=== PATIENT | female | born 1950 | race Caucasian/White ===

== ENCOUNTER 2017-02-14 13:47 | Inpatient (IN) | payer MEDICARE, MEDICAID ==
[~2017-02-14] VITALS: Ht 157.5 cm; Wt 137.0 kg
[~2017-02-14 13:47] MED LIST: DOXY100C2 PO; FURO-149 PO; GABA800T2 PO; HYDR-3965 PO; OMEP40CA37 PO; SPIR50TA3 PO; SYN0.088T PO
[2017-02-14 15:57] LABS: BASOPHILS % (AUTO) 0.3 % (0-1); EOSINOPHILS # (AUTO) 0.3 X10'3 (0-0.9); EOSINOPHILS % (AUTO) 2.4 % (0-6); HEMATOCRIT 40.5 % (35.0-45.0); HEMOGLOBIN 13.3 g/dl (12.0-16.0); LYMPHOCYTES # (AUTO) 1.1 X10'3 (1.1-4.8); LYMPHOCYTES % (AUTO) 10.3 % (21-51); MEAN CORPUSCULAR HEMOGLOBIN 31.7 PG (27.0-31.0); MEAN CORPUSCULAR HGB CONC 32.8 % (33.0-36.5); MEAN CORPUSCULAR VOLUME 96.5 FL (78-98); MEAN PLATELET VOLUME 7.7 FL (7.4-10.4); MONOCYTES % (AUTO) 9.8 % (2-12); NEUTROPHILS % (AUTO) 77.2 % (42-75); PLATELET COUNT 363 X10'3 (140-440); RED CELL DISTRIBUTION WIDTH 15.4 % (11.5-14.5); WHITE BLOOD COUNT 10.3 X10'3 (4.5-11.0)
[2017-02-14 16:01] LABS: ALANINE AMINOTRANSFERASE 26 U/L (12-78); ALBUMIN 2.2 G/DL (3.4-5.0); ALBUMIN/GLOBULIN RATIO 0.4 (1.1-1.5); ALKALINE PHOSPHATASE 88 IU/L (46-116); ANION GAP 5 (8-16); ASPARTATE AMINO TRANSFERASE 17 U/L (10-37); BILIRUBIN,TOTAL 0.3 MG/DL (0.1-1.0); BLOOD UREA NITROGEN 8 MG/DL (7-18); BUN/CREATININE RATIO 7.4 (6.6-38.0); CALCIUM 9.4 MG/DL (8.5-10.1); CHLORIDE 97 MMOL/L (99-107); CREATININE 1.08 MG/DL (0.40-0.90); GLUCOSE 112 MG/DL (70-104); POTASSIUM 3.8 MMOL/L (3.5-5.1); SODIUM 135 MMOL/L (135-145); TOTAL CARBON DIOXIDE 33.2 MMOL/L (24-32); TOTAL PROTEIN 7.8 G/DL (6.4-8.2); eGFR 51 ML/MIN
[2017-02-14 16:52] LABS: PROTHROMBIN TIME 10.8 SECONDS (9.0-12.0)
[2017-02-14] MEDS ORDERED: vancomycin/NS 1 GM ADD-VANTAGE 250 ML IV ONE (17:25)
[2017-02-14] MEDS ORDERED: levoFLOXACIN-Levaquin 750MG/D5 150 ML IV ONE (17:25)
[2017-02-14] MEDS ORDERED: bisacodyl 10mg suppository rectal RC PRN (17:40)
[2017-02-14] MEDS ORDERED: HYDROmorphone 1 mg/ml syringe IV PRN ×2 (17:40)
[2017-02-14] MEDS ORDERED: HYDROcodone/acetaminophen 5mg/325mg tablet PO PRN (17:40)
[2017-02-14] MEDS ORDERED: acetaminophen 650mg rectal suppository RC PRN (17:40)
[2017-02-14] MEDS ORDERED: acetaminophen 325mg tablet PO PRN (17:40)
[2017-02-14] MEDS ORDERED: morphine sulfate 8 MG/ML SYRINGE IV PRN (17:40)
[2017-02-14] MEDS ORDERED: mag hydrox/Alum hydrox/simeth 30ml oral suspension PO PRN (17:40)
[2017-02-14] MEDS ORDERED: magnesium hydroxide 30ml (MOM) UD suspension PO PRN (17:40)
[2017-02-14] MEDS ORDERED: ondansetron/PF 4mg/2ml inj IV PRN (17:40)
[2017-02-14] MEDS ORDERED: diphenhydrAMINE 50 mg/ml inj IV PRN (17:40)
[2017-02-14] MEDS ORDERED: metoclopramide 5 mg/ml inj IV PRN (17:40)
[2017-02-14] MEDS: normal saline 1000ml 1,000 ML IV SCH (18:01)
[2017-02-14 18:12] LABS: PARTIAL THROMBOPLASTIN TIME 32 SECONDS (22-32)
[2017-02-14 18:15] LABS: MAGNESIUM 1.7 MG/DL (1.5-2.4)
[2017-02-14] MEDS ORDERED: vancomycin/NS 1 GM ADD-VANTAGE 250 ML IV SCH (20:00)
[2017-02-14] MEDS ORDERED: HYDROcodone/acetaminophen 5mg/325mg tablet PO SCH (21:00)
[2017-02-14 22:00] VITALS: BP 118/56
[2017-02-15] VITALS: BP 108/52
[2017-02-15] MEDS: HYDROcodone/acetaminophen 10/325mg tab PO PRN ×3 (03:11→13:24)
[2017-02-15] MEDS: normal saline 1000ml 1,000 ML IV SCH ×3 (03:36→16:35)
[2017-02-15 06:26] LABS: BASOPHILS % (AUTO) 0.1 % (0-1); EOSINOPHILS # (AUTO) 0.2 X10'3 (0-0.9); EOSINOPHILS % (AUTO) 2.1 % (0-6); HEMATOCRIT 35.3 % (35.0-45.0); HEMOGLOBIN 11.9 g/dl (12.0-16.0); LYMPHOCYTES # (AUTO) 0.6 X10'3 (1.1-4.8); LYMPHOCYTES % (AUTO) 7.5 % (21-51); MEAN CORPUSCULAR HEMOGLOBIN 31.9 PG (27.0-31.0); MEAN CORPUSCULAR HGB CONC 33.6 % (33.0-36.5); MEAN CORPUSCULAR VOLUME 95.2 FL (78-98); MEAN PLATELET VOLUME 7.9 FL (7.4-10.4); MONOCYTES # (AUTO) 0.4 X10'3 (0-0.9); MONOCYTES % (AUTO) 4.2 % (2-12); NEUTROPHILS # (AUTO) 7.1 X10'3 (1.8-7.7); NEUTROPHILS % (AUTO) 86.1 % (42-75); PLATELET COUNT 295 X10'3 (140-440); RED BLOOD COUNT 3.71 X10'6 (4.20-5.60); RED CELL DISTRIBUTION WIDTH 15.3 % (11.5-14.5); WHITE BLOOD COUNT 8.2 X10'3 (4.5-11.0)
[2017-02-15 06:56] LABS: ALANINE AMINOTRANSFERASE 14 U/L (12-78); ALBUMIN 1.5 G/DL (3.4-5.0); ALBUMIN/GLOBULIN RATIO 0.3 (1.1-1.5); ALKALINE PHOSPHATASE 62 IU/L (46-116); ANION GAP 3 (8-16); ASPARTATE AMINO TRANSFERASE 14 U/L (10-37); BILIRUBIN,TOTAL 0.5 MG/DL (0.1-1.0); BLOOD UREA NITROGEN 6 MG/DL (7-18); BUN/CREATININE RATIO 6.6 (6.6-38.0); CALCIUM 8.6 MG/DL (8.5-10.1); CHLORIDE 102 MMOL/L (99-107); CREATININE 0.91 MG/DL (0.40-0.90); GLUCOSE 81 MG/DL (70-104); POTASSIUM 4.3 MMOL/L (3.5-5.1); SODIUM 138 MMOL/L (135-145); TOTAL CARBON DIOXIDE 32.7 MMOL/L (24-32); TOTAL PROTEIN 5.8 G/DL (6.4-8.2); eGFR 62 ML/MIN
[2017-02-15] MEDS: levoTHYROXINE 88mcg tablet PO SCH (07:04)
[2017-02-15] MEDS: pantoprazole 40mg Tablet.DR PO SCH (07:04)
[2017-02-15 08:00] VITALS: BP 114/74
[2017-02-15] MEDS ORDERED: non-formulary drug (Gabapentin 1 TAB) PO SCH (08:00)
[2017-02-15] MEDS ORDERED: non-formulary drug (Omeprazole (Prilosec) 1 CAP) PO SCH (08:00)
[2017-02-15] MEDS ORDERED: gabapentin 400mg capsule PO SCH ×2 (08:00→10:48)
[2017-02-15] MEDS ORDERED: levoFLOXACIN-Levaquin 750MG/D5 150 ML IV SCH (08:00)
[2017-02-15] MEDS: spironolactone 50 MG tablet PO SCH (09:40)
[2017-02-15] MEDS: enoxaparin 40mg/0.4ml syringe SQ SCH (09:41)
[2017-02-15] MEDS ORDERED: vancomycin inj 1,250 MG in normal saline 250ml IV soln 250 ML IV SCH (11:00)
[2017-02-15 12:00] VITALS: BP 99/51
[2017-02-15] MEDS: diphenhydrAMINE 25mg capsule PO PRN (16:29)
[2017-02-15] MEDS: piperacillin/tazo 4.5gm/100ml 100 ML IV SCH ×2 (16:29→23:21)
[2017-02-15 20:00] VITALS: BP 123/51
[2017-02-15] MEDS: gabapentin 400mg capsule PO SCH (21:50)
[2017-02-16] VITALS: BP 103/40
[2017-02-16] MEDS: HYDROcodone/acetaminophen 10/325mg tab PO PRN ×2 (00:50→19:38)
[2017-02-16] MEDS: morphine sulfate 8 MG/ML SYRINGE IV PRN ×2 (02:48→20:29)
[2017-02-16] MEDS: normal saline 1000ml 1,000 ML IV SCH ×2 (05:15→20:22)
[2017-02-16 06:06] LABS: BASOPHILS % (AUTO) 0.1 % (0-1); EOSINOPHILS # (AUTO) 0.3 X10'3 (0-0.9); EOSINOPHILS % (AUTO) 2.4 % (0-6); HEMATOCRIT 36.2 % (35.0-45.0); HEMOGLOBIN 12.1 g/dl (12.0-16.0); LYMPHOCYTES # (AUTO) 0.3 X10'3 (1.1-4.8); LYMPHOCYTES % (AUTO) 3.1 % (21-51); MEAN CORPUSCULAR HEMOGLOBIN 31.9 PG (27.0-31.0); MEAN CORPUSCULAR HGB CONC 33.3 % (33.0-36.5); MEAN PLATELET VOLUME 8.1 FL (7.4-10.4); MONOCYTES # (AUTO) 0.5 X10'3 (0-0.9); MONOCYTES % (AUTO) 4.4 % (2-12); PLATELET COUNT 281 X10'3 (140-440); RED BLOOD COUNT 3.78 X10'6 (4.20-5.60); RED CELL DISTRIBUTION WIDTH 15.3 % (11.5-14.5); WHITE BLOOD COUNT 11.1 X10'3 (4.5-11.0)
[2017-02-16 07:00] VITALS: BP 104/50
[2017-02-16 07:04] LABS: ALANINE AMINOTRANSFERASE 17 U/L (12-78); ALBUMIN 1.5 G/DL (3.4-5.0); ALBUMIN/GLOBULIN RATIO 0.3 (1.1-1.5); ALKALINE PHOSPHATASE 86 IU/L (46-116); ANION GAP 5 (8-16); ASPARTATE AMINO TRANSFERASE 16 U/L (10-37); BILIRUBIN,TOTAL 0.6 MG/DL (0.1-1.0); BLOOD UREA NITROGEN 7 MG/DL (7-18); CALCIUM 8.3 MG/DL (8.5-10.1); CHLORIDE 100 MMOL/L (99-107); CREATININE 1.16 MG/DL (0.40-0.90); GLUCOSE 104 MG/DL (70-104); POTASSIUM 3.9 MMOL/L (3.5-5.1); SODIUM 136 MMOL/L (135-145); TOTAL CARBON DIOXIDE 31.2 MMOL/L (24-32); TOTAL PROTEIN 5.9 G/DL (6.4-8.2); eGFR 47 ML/MIN
[2017-02-16] MEDS: spironolactone 50 MG tablet PO SCH (07:23)
[2017-02-16] MEDS: gabapentin 400mg capsule PO SCH ×3 (07:24→20:22)
[2017-02-16] MEDS: pantoprazole 40mg Tablet.DR PO SCH (07:24)
[2017-02-16] MEDS: enoxaparin 40mg/0.4ml syringe SQ SCH (07:24)
[2017-02-16] MEDS: levoTHYROXINE 88mcg tablet PO SCH (07:24)
[2017-02-16] MEDS: piperacillin/tazo 4.5gm/100ml 100 ML IV SCH ×3 (07:25→23:43)
[2017-02-16] MEDS ORDERED: VANCOMYCIN LEVEL IV NR (10:30)
[2017-02-16 11:00] VITALS: BP 94/50
[2017-02-16] MEDS: diphenhydrAMINE 25mg capsule PO PRN (13:28)
[2017-02-16] MEDS: silver sulfadiazine cream 400gm jar TP SCH (16:00)
[2017-02-16] MEDS: lactobacillus rhamnosus 10,000 MMU CELLS/CAPSULE PO SCH (17:42)
[2017-02-16 20:00] VITALS: BP 98/41
[2017-02-17] VITALS: BP 109/49
[2017-02-17] MEDS: morphine sulfate 8 MG/ML SYRINGE IV PRN ×2 (00:37→16:29)
[2017-02-17] MEDS: temazepam 15mg capsule PO PRN (01:44)
[2017-02-17] MEDS: diphenhydrAMINE 25mg capsule PO PRN (01:44)
[2017-02-17 05:18] LABS: BASOPHILS % (AUTO) 0.1 % (0-1); EOSINOPHILS # (AUTO) 0.2 X10'3 (0-0.9); EOSINOPHILS % (AUTO) 1.9 % (0-6); HEMATOCRIT 36.1 % (35.0-45.0); HEMOGLOBIN 11.9 g/dl (12.0-16.0); LYMPHOCYTES # (AUTO) 0.3 X10'3 (1.1-4.8); LYMPHOCYTES % (AUTO) 2.4 % (21-51); MEAN CORPUSCULAR HEMOGLOBIN 31.7 PG (27.0-31.0); MEAN CORPUSCULAR HGB CONC 33.1 % (33.0-36.5); MEAN CORPUSCULAR VOLUME 95.8 FL (78-98); MEAN PLATELET VOLUME 7.9 FL (7.4-10.4); MONOCYTES # (AUTO) 0.3 X10'3 (0-0.9); MONOCYTES % (AUTO) 2.4 % (2-12); NEUTROPHILS # (AUTO) 10.3 X10'3 (1.8-7.7); NEUTROPHILS % (AUTO) 93.2 % (42-75); PLATELET COUNT 244 X10'3 (140-440); RED BLOOD COUNT 3.77 X10'6 (4.20-5.60); RED CELL DISTRIBUTION WIDTH 15.3 % (11.5-14.5)
[2017-02-17] MEDS: normal saline 1000ml 1,000 ML IV SCH ×3 (05:34→20:47)
[2017-02-17 06:04] LABS: ALANINE AMINOTRANSFERASE 18 U/L (12-78); ALBUMIN 1.3 G/DL (3.4-5.0); ALBUMIN/GLOBULIN RATIO 0.3 (1.1-1.5); ALKALINE PHOSPHATASE 105 IU/L (46-116); ANION GAP 9 (8-16); ASPARTATE AMINO TRANSFERASE 19 U/L (10-37); BILIRUBIN,TOTAL 0.6 MG/DL (0.1-1.0); BLOOD UREA NITROGEN 9 MG/DL (7-18); BUN/CREATININE RATIO 8.8 (6.6-38.0); CHLORIDE 98 MMOL/L (99-107); CREATININE 1.02 MG/DL (0.40-0.90); GLUCOSE 99 MG/DL (70-104); POTASSIUM 3.8 MMOL/L (3.5-5.1); SODIUM 134 MMOL/L (135-145); TOTAL CARBON DIOXIDE 27.4 MMOL/L (24-32); TOTAL PROTEIN 5.6 G/DL (6.4-8.2); eGFR 54 ML/MIN
[2017-02-17 07:48] VITALS: BP 108/71
[2017-02-17] MEDS: silver sulfadiazine cream 400gm jar TP SCH (08:00)
[2017-02-17] MEDS: piperacillin/tazo 4.5gm/100ml 100 ML IV SCH ×3 (08:00→23:31)
[2017-02-17] MEDS: gabapentin 400mg capsule PO SCH ×3 (09:32→20:46)
[2017-02-17] MEDS: spironolactone 50 MG tablet PO SCH (09:32)
[2017-02-17] MEDS: lactobacillus rhamnosus 10,000 MMU CELLS/CAPSULE PO SCH ×2 (09:32→18:47)
[2017-02-17] MEDS: pantoprazole 40mg Tablet.DR PO SCH (09:32)
[2017-02-17] MEDS: levoTHYROXINE 88mcg tablet PO SCH (09:33)
[2017-02-17] MEDS: enoxaparin 40mg/0.4ml syringe SQ SCH (09:35)
[2017-02-17 11:00] VITALS: BP 91/48
[2017-02-17 20:00] VITALS: BP 104/55
[2017-02-17] MEDS: guaiFENesin ER 600mg tablet PO SCH (22:53)
[2017-02-18] VITALS: BP 112/54
[2017-02-18] MEDS: temazepam 15mg capsule PO PRN (02:10)
[2017-02-18] MEDS: morphine sulfate 8 MG/ML SYRINGE IV PRN ×3 (02:11→21:08)
[2017-02-18] MEDS: diphenhydrAMINE 25mg capsule PO PRN ×3 (03:14→23:14)
[2017-02-18 07:13] LABS: ALANINE AMINOTRANSFERASE 11 U/L (12-78); ALBUMIN 1.1 G/DL (3.4-5.0); ALBUMIN/GLOBULIN RATIO 0.3 (1.1-1.5); ALKALINE PHOSPHATASE 100 IU/L (46-116); ANION GAP 7 (8-16); ASPARTATE AMINO TRANSFERASE 12 U/L (10-37); BILIRUBIN,TOTAL 0.5 MG/DL (0.1-1.0); BLOOD UREA NITROGEN 8 MG/DL (7-18); BUN/CREATININE RATIO 9.5 (6.6-38.0); CHLORIDE 100 MMOL/L (99-107); CREATININE 0.84 MG/DL (0.40-0.90); GLUCOSE 90 MG/DL (70-104); POTASSIUM 3.5 MMOL/L (3.5-5.1); SODIUM 134 MMOL/L (135-145); TOTAL PROTEIN 5.3 G/DL (6.4-8.2); eGFR 68 ML/MIN
[2017-02-18 07:25] LABS: BASOPHILS % (AUTO) 0 % (0-1); EOSINOPHILS # (AUTO) 0.2 X10'3 (0-0.9); EOSINOPHILS % (AUTO) 2.1 % (0-6); HEMATOCRIT 33.8 % (35.0-45.0); HEMOGLOBIN 11.4 g/dl (12.0-16.0); LYMPHOCYTES # (AUTO) 0.3 X10'3 (1.1-4.8); LYMPHOCYTES % (AUTO) 3.5 % (21-51); MEAN CORPUSCULAR HEMOGLOBIN 31.9 PG (27.0-31.0); MEAN CORPUSCULAR HGB CONC 33.8 % (33.0-36.5); MEAN CORPUSCULAR VOLUME 94.6 FL (78-98); MEAN PLATELET VOLUME 8.4 FL (7.4-10.4); MONOCYTES # (AUTO) 0.5 X10'3 (0-0.9); MONOCYTES % (AUTO) 5.4 % (2-12); NEUTROPHILS # (AUTO) 7.7 X10'3 (1.8-7.7); PLATELET COUNT 221 X10'3 (140-440); RED BLOOD COUNT 3.58 X10'6 (4.20-5.60); RED CELL DISTRIBUTION WIDTH 14.3 % (11.5-14.5); WHITE BLOOD COUNT 8.7 X10'3 (4.5-11.0)
[2017-02-18 07:46] VITALS: BP 100/40
[2017-02-18] MEDS ORDERED: guaiFENesin ER 600mg tablet PO SCH (08:00)
[2017-02-18] MEDS: levoTHYROXINE 88mcg tablet PO SCH (08:00)
[2017-02-18] MEDS: silver sulfadiazine cream 400gm jar TP SCH (08:00)
[2017-02-18] MEDS: pantoprazole 40mg Tablet.DR PO SCH (08:18)
[2017-02-18] MEDS: lactobacillus rhamnosus 10,000 MMU CELLS/CAPSULE PO SCH ×2 (08:18→16:36)
[2017-02-18] MEDS: piperacillin/tazo 4.5gm/100ml 100 ML IV SCH ×3 (08:19→23:14)
[2017-02-18] MEDS: spironolactone 50 MG tablet PO SCH (08:19)
[2017-02-18] MEDS: guaiFENesin ER 600mg tablet PO SCH ×2 (08:20→21:59)
[2017-02-18] MEDS: gabapentin 400mg capsule PO SCH ×3 (08:20→22:00)
[2017-02-18] MEDS: enoxaparin 40mg/0.4ml syringe SQ SCH (08:21)
[2017-02-18] MEDS: normal saline 1000ml 1,000 ML IV SCH ×2 (08:21→22:01)
[2017-02-18 12:00] VITALS: BP 108/41
[2017-02-18] MEDS ORDERED: BUDE10.2 INH (12:36)
[2017-02-18] MEDS: Budesonide/Formoterol Fumarate (Symbicort 160-4.5 Mcg Inhaler) 2 PUFFS IH SCH ×2 (12:50→22:00)
[2017-02-18] MEDS: Protein Smoothie (high protein) 240ml (8oz) cup PO SCH (18:32)
[2017-02-18 20:00] VITALS: BP 124/57
[2017-02-19] VITALS: BP 118/49
[2017-02-19] MEDS: temazepam 15mg capsule PO PRN (00:53)
[2017-02-19 05:25] LABS: BASOPHILS % (AUTO) 0.3 % (0-1); EOSINOPHILS # (AUTO) 0.3 X10'3 (0-0.9); EOSINOPHILS % (AUTO) 3.9 % (0-6); HEMATOCRIT 35.2 % (35.0-45.0); HEMOGLOBIN 11.6 g/dl (12.0-16.0); LYMPHOCYTES # (AUTO) 0.4 X10'3 (1.1-4.8); LYMPHOCYTES % (AUTO) 5.7 % (21-51); MEAN CORPUSCULAR HEMOGLOBIN 31.6 PG (27.0-31.0); MEAN CORPUSCULAR HGB CONC 32.9 % (33.0-36.5); MEAN CORPUSCULAR VOLUME 96.1 FL (78-98); MEAN PLATELET VOLUME 7.8 FL (7.4-10.4); MONOCYTES # (AUTO) 0.4 X10'3 (0-0.9); MONOCYTES % (AUTO) 6.3 % (2-12); NEUTROPHILS # (AUTO) 5.5 X10'3 (1.8-7.7); NEUTROPHILS % (AUTO) 83.8 % (42-75); PLATELET COUNT 215 X10'3 (140-440); RED BLOOD COUNT 3.67 X10'6 (4.20-5.60); RED CELL DISTRIBUTION WIDTH 15.6 % (11.5-14.5); WHITE BLOOD COUNT 6.6 X10'3 (4.5-11.0)
[2017-02-19 05:47] LABS: ALANINE AMINOTRANSFERASE 10 U/L (12-78); ALBUMIN 1.1 G/DL (3.4-5.0); ALBUMIN/GLOBULIN RATIO 0.3 (1.1-1.5); ALKALINE PHOSPHATASE 106 IU/L (46-116); ANION GAP 8 (8-16); ASPARTATE AMINO TRANSFERASE 9 U/L (10-37); BILIRUBIN,TOTAL 0.4 MG/DL (0.1-1.0); BLOOD UREA NITROGEN 7 MG/DL (7-18); BUN/CREATININE RATIO 8.5 (6.6-38.0); CALCIUM 8.2 MG/DL (8.5-10.1); CHLORIDE 102 MMOL/L (99-107); CREATININE 0.82 MG/DL (0.40-0.90); GLUCOSE 98 MG/DL (70-104); POTASSIUM 3.3 MMOL/L (3.5-5.1); SODIUM 139 MMOL/L (135-145); TOTAL CARBON DIOXIDE 29.1 MMOL/L (24-32); TOTAL PROTEIN 5.3 G/DL (6.4-8.2); eGFR 70 ML/MIN
[2017-02-19 07:30] VITALS: BP 98/39
[2017-02-19] MEDS: levoTHYROXINE 88mcg tablet PO SCH (08:00)
[2017-02-19] MEDS: Protein Smoothie (high protein) 240ml (8oz) cup PO SCH ×3 (08:00→18:48)
[2017-02-19] MEDS: silver sulfadiazine cream 400gm jar TP SCH (08:00)
[2017-02-19] MEDS: piperacillin/tazo 4.5gm/100ml 100 ML IV SCH ×3 (08:00→23:21)
[2017-02-19] MEDS: pantoprazole 40mg Tablet.DR PO SCH (09:42)
[2017-02-19] MEDS: lactobacillus rhamnosus 10,000 MMU CELLS/CAPSULE PO SCH ×2 (09:42→16:37)
[2017-02-19] MEDS: Budesonide/Formoterol Fumarate (Symbicort 160-4.5 Mcg Inhaler) 2 PUFFS IH SCH ×2 (09:43→21:18)
[2017-02-19] MEDS: gabapentin 400mg capsule PO SCH ×3 (09:43→21:18)
[2017-02-19] MEDS: guaiFENesin ER 600mg tablet PO SCH ×2 (09:43→21:18)
[2017-02-19] MEDS: spironolactone 50 MG tablet PO SCH (09:43)
[2017-02-19] MEDS: enoxaparin 40mg/0.4ml syringe SQ SCH (09:44)
[2017-02-19] MEDS: HYDROcodone/acetaminophen 10/325mg tab PO PRN ×2 (09:45→16:37)
[2017-02-19 11:30] VITALS: BP 124/53
[2017-02-19] MEDS: normal saline 1000ml 1,000 ML IV SCH ×3 (12:47→23:21)
[2017-02-19] MEDS: diphenhydrAMINE 25mg capsule PO PRN ×2 (12:53→20:02)
[2017-02-19] MEDS: morphine sulfate 8 MG/ML SYRINGE IV PRN ×2 (15:17→22:29)
[2017-02-19] MEDS ORDERED: potassium Cl 40MEQ/NS 500ml 500 ML IV PRN ×2 (15:45)
[2017-02-19] MEDS ORDERED: potassium Cl 20 mEq SR tablet PO PRN (15:45)
[2017-02-19] MEDS ORDERED: magnesium 4gm in 100ml NS 100 ML IV PRN (15:45)
[2017-02-19] MEDS ORDERED: magnesium 2GM in 50ml NS 50 ML IV PRN (15:45)
[2017-02-19] MEDS: potassium Cl 20 mEq SR tablet PO PRN (16:46)
[2017-02-19 20:00] VITALS: BP 119/50
[2017-02-20] VITALS: BP 130/62
[2017-02-20] MEDS: HYDROcodone/acetaminophen 10/325mg tab PO PRN ×3 (00:58→20:32)
[2017-02-20] MEDS: potassium Cl 20 mEq SR tablet PO PRN ×2 (01:22→05:17)
[2017-02-20] MEDS: diphenhydrAMINE 25mg capsule PO PRN ×2 (02:30→12:20)
[2017-02-20 05:22] LABS: BASOPHILS % (AUTO) 0.1 % (0-1); EOSINOPHILS # (AUTO) 0.3 X10'3 (0-0.9); EOSINOPHILS % (AUTO) 3.6 % (0-6); HEMOGLOBIN 11.5 g/dl (12.0-16.0); LYMPHOCYTES # (AUTO) 0.8 X10'3 (1.1-4.8); LYMPHOCYTES % (AUTO) 10.2 % (21-51); MEAN CORPUSCULAR HEMOGLOBIN 31.5 PG (27.0-31.0); MEAN CORPUSCULAR HGB CONC 32.7 % (33.0-36.5); MEAN CORPUSCULAR VOLUME 96.2 FL (78-98); MEAN PLATELET VOLUME 8.1 FL (7.4-10.4); MONOCYTES # (AUTO) 1.3 X10'3 (0-0.9); MONOCYTES % (AUTO) 16.4 % (2-12); NEUTROPHILS # (AUTO) 5.5 X10'3 (1.8-7.7); NEUTROPHILS % (AUTO) 69.7 % (42-75); PLATELET COUNT 245 X10'3 (140-440); RED BLOOD COUNT 3.64 X10'6 (4.20-5.60); RED CELL DISTRIBUTION WIDTH 15.8 % (11.5-14.5); WHITE BLOOD COUNT 7.8 X10'3 (4.5-11.0)
[2017-02-20 05:38] LABS: ALANINE AMINOTRANSFERASE 15 U/L (12-78); ALBUMIN 1.3 G/DL (3.4-5.0); ALBUMIN/GLOBULIN RATIO 0.3 (1.1-1.5); ALKALINE PHOSPHATASE 112 IU/L (46-116); ANION GAP 5 (8-16); ASPARTATE AMINO TRANSFERASE 13 U/L (10-37); BILIRUBIN,TOTAL 0.3 MG/DL (0.1-1.0); BLOOD UREA NITROGEN 5 MG/DL (7-18); BUN/CREATININE RATIO 5.4 (6.6-38.0); CALCIUM 8.2 MG/DL (8.5-10.1); CHLORIDE 102 MMOL/L (99-107); CREATININE 0.92 MG/DL (0.40-0.90); GLUCOSE 104 MG/DL (70-104); MAGNESIUM 1.2 MG/DL (1.5-2.4); PHOSPHORUS 1.6 MG/DL (2.3-4.5); POTASSIUM 3.4 MMOL/L (3.5-5.1); SODIUM 137 MMOL/L (135-145); TOTAL CARBON DIOXIDE 30.3 MMOL/L (24-32); TOTAL PROTEIN 5.5 G/DL (6.4-8.2); eGFR 61 ML/MIN
[2017-02-20 07:06] VITALS: BP 102/43
[2017-02-20] MEDS: Budesonide/Formoterol Fumarate (Symbicort 160-4.5 Mcg Inhaler) 2 PUFFS IH SCH ×2 (08:00→20:32)
[2017-02-20] MEDS: gabapentin 400mg capsule PO SCH ×3 (08:24→20:31)
[2017-02-20] MEDS: levoTHYROXINE 88mcg tablet PO SCH (08:24)
[2017-02-20] MEDS: piperacillin/tazo 4.5gm/100ml 100 ML IV SCH ×3 (08:24→23:25)
[2017-02-20] MEDS: guaiFENesin ER 600mg tablet PO SCH ×2 (08:24→20:31)
[2017-02-20] MEDS: enoxaparin 40mg/0.4ml syringe SQ SCH (08:24)
[2017-02-20] MEDS: pantoprazole 40mg Tablet.DR PO SCH (08:24)
[2017-02-20] MEDS: lactobacillus rhamnosus 10,000 MMU CELLS/CAPSULE PO SCH ×2 (08:24→16:33)
[2017-02-20] MEDS: magnesium Cl slow-release 64mg tablet PO PRN ×2 (08:25→20:31)
[2017-02-20] MEDS: silver sulfadiazine cream 400gm jar TP SCH (08:26)
[2017-02-20] MEDS: spironolactone 50 MG tablet PO SCH (08:32)
[2017-02-20] MEDS: Protein Smoothie (high protein) 240ml (8oz) cup PO SCH ×3 (08:32→18:13)
[2017-02-20] MEDS: normal saline 1000ml 1,000 ML IV SCH ×2 (11:06→21:44)
[2017-02-20 11:31] VITALS: BP 117/48
[2017-02-20] MEDS: morphine sulfate 8 MG/ML SYRINGE IV PRN (14:07)
[2017-02-20 20:00] VITALS: BP 124/57
[2017-02-21] VITALS: BP 117/45
[2017-02-21 06:00] VITALS: BP 122/47
[2017-02-21] MEDS: silver sulfadiazine cream 400gm jar TP SCH (08:00)
[2017-02-21] MEDS: levoTHYROXINE 88mcg tablet PO SCH (08:00)
[2017-02-21] MEDS: gabapentin 400mg capsule PO SCH ×2 (08:13→14:19)
[2017-02-21] MEDS: spironolactone 50 MG tablet PO SCH (08:14)
[2017-02-21] MEDS: lactobacillus rhamnosus 10,000 MMU CELLS/CAPSULE PO SCH (08:14)
[2017-02-21] MEDS: pantoprazole 40mg Tablet.DR PO SCH (08:15)
[2017-02-21] MEDS: guaiFENesin ER 600mg tablet PO SCH (08:15)
[2017-02-21] MEDS: piperacillin/tazo 4.5gm/100ml 100 ML IV SCH (08:16)
[2017-02-21] MEDS: Budesonide/Formoterol Fumarate (Symbicort 160-4.5 Mcg Inhaler) 2 PUFFS IH SCH (08:17)
[2017-02-21] MEDS: enoxaparin 40mg/0.4ml syringe SQ SCH (08:18)
[2017-02-21] MEDS: Protein Smoothie (high protein) 240ml (8oz) cup PO SCH ×2 (08:18→13:59)
[2017-02-21] MEDS: normal saline 1000ml 1,000 ML IV SCH (09:28)
[2017-02-21 11:00] VITALS: BP 136/61
[2017-02-21] MEDS: HYDROcodone/acetaminophen 10/325mg tab PO PRN (14:20)
[2017-02-21] MEDS: diphenhydrAMINE 25mg capsule PO PRN (16:07)
== END 2017-02-21 16:15 | DRG 602 ==
LOC: ER 13:49 → ED HOLD 17:56 → SUR 3N 22:00
PROVIDERS: ADMIT Family Medicine; ATTEND Internal Medicine
DX: L03.116 Cellulitis of left lower limb (principal); E43 Unspecified severe protein-calorie malnutrition; L97.909 Non-pressure chronic ulcer of unspecified part of unspecified lower leg with unspecified severity; Z68.43 Body mass index [BMI] 50.0-59.9, adult; J44.1 Chronic obstructive pulmonary disease with (acute) exacerbation; E66.01 Morbid (severe) obesity due to excess calories; I83.009 Varicose veins of unspecified lower extremity with ulcer of unspecified site; E86.1 Hypovolemia; E03.9 Hypothyroidism, unspecified; E87.6 Hypokalemia; I10 Essential (primary) hypertension; M79.604 Pain in right leg; F17.210 Nicotine dependence, cigarettes, uncomplicated; I89.0 Lymphedema, not elsewhere classified; L03.115 Cellulitis of right lower limb; Z90.49 Acquired absence of other specified parts of digestive tract; Z88.8 Allergy status to other drugs, medicaments and biological substances
CPT/HCPCS: 36415; 80053; 80202; 83735; 83880; 84100; 84132; 85025; 85610; 85730; 87070; 87075; 87077; 87186; 94640; 94667; 94760; 96365; 97110; 97116; 97161; 97530; 99285; A6196; A6212; A6213; A6223; A6253; A6258; A6446; A6449; J1650; J1956; J2270; J2543; J3370; J7030; Q0163

== ENCOUNTER 2017-02-22 11:52 | Inpatient (IN) | payer MEDICARE, MEDICAID ==
[~2017-02-22] VITALS: Ht 157.5 cm; Wt 150.0 kg
[~2017-02-22 11:52] MED LIST changes: +BUDE10.2 INH
[2017-02-22] MEDS ORDERED: albuterol 2.5 MG/3 ML nebule NEB ONE (12:05)
[2017-02-22] MEDS ORDERED: furosemide 40mg/4ml inj IV ONE (12:05)
[2017-02-22] MEDS ORDERED: methylPREDNISolone sod succ 125mg/2ml vial IV ONE (12:10)
[2017-02-22 12:42] LABS: BASOPHILS % (AUTO) 0.1 % (0-1); EOSINOPHILS % (AUTO) 0.3 % (0-6); HEMATOCRIT 44.1 % (35.0-45.0); HEMOGLOBIN 14.3 g/dl (12.0-16.0); LYMPHOCYTES # (AUTO) 0.7 X10'3 (1.1-4.8); LYMPHOCYTES % (AUTO) 6.4 % (21-51); MEAN CORPUSCULAR HEMOGLOBIN 31.3 PG (27.0-31.0); MEAN CORPUSCULAR HGB CONC 32.4 % (33.0-36.5); MEAN CORPUSCULAR VOLUME 96.6 FL (78-98); MEAN PLATELET VOLUME 7.7 FL (7.4-10.4); MONOCYTES # (AUTO) 0.1 X10'3 (0-0.9); MONOCYTES % (AUTO) 0.7 % (2-12); NEUTROPHILS # (AUTO) 10.8 X10'3 (1.8-7.7); NEUTROPHILS % (AUTO) 92.5 % (42-75); PLATELET COUNT 255 X10'3 (140-440); RED BLOOD COUNT 4.56 X10'6 (4.20-5.60); RED CELL DISTRIBUTION WIDTH 15.8 % (11.5-14.5); WHITE BLOOD COUNT 11.7 X10'3 (4.5-11.0)
[2017-02-22] MEDS ORDERED: ipratropium/albuterol 3ml nebule NEB ONE (12:50)
[2017-02-22 12:53] LABS: INR 1.1 INR; PARTIAL THROMBOPLASTIN TIME 25 SECONDS (22-32); PROTHROMBIN TIME 11.1 SECONDS (9.0-12.0)
[2017-02-22 13:09] LABS: ALANINE AMINOTRANSFERASE 46 U/L (12-78); ALBUMIN 1.7 G/DL (3.4-5.0); ALBUMIN/GLOBULIN RATIO 0.3 (1.1-1.5); ALKALINE PHOSPHATASE 343 IU/L (46-116); ANION GAP 9 (8-16); ASPARTATE AMINO TRANSFERASE 62 U/L (10-37); BILIRUBIN,TOTAL 0.6 MG/DL (0.1-1.0); BLOOD UREA NITROGEN 5 MG/DL (7-18); BUN/CREATININE RATIO 4.8 (6.6-38.0); CALCIUM 9.5 MG/DL (8.5-10.1); CHLORIDE 102 MMOL/L (99-107); CREATININE 1.04 MG/DL (0.40-0.90); GLUCOSE 78 MG/DL (70-104); POTASSIUM 3.6 MMOL/L (3.5-5.1); SODIUM 141 MMOL/L (135-145); TOTAL PROTEIN 6.7 G/DL (6.4-8.2); eGFR 53 ML/MIN
[2017-02-22 13:44] LABS: TOTAL CELLS COUNTED 100
[2017-02-22 13:45] LABS: ANISOCYTOSIS 1+; PLATELET ESTIMATE NORMAL
[2017-02-22 14:12] LABS: CLARITY,URINE CLEAR (Clear); COLOR,URINE STRAW (Yellow); GLUCOSE, URINE NEGATIVE (Neg); KETONES,URINE NEGATIVE (Neg); LEUKOCYTE ESTERASE ,URINE NEGATIVE (Neg); NITRITES, URINE NEGATIVE (Neg); OCCULT BLOOD,URINE NEGATIVE (Neg); PROTEIN,URINE NEGATIVE (Neg); UROBILINOGEN,URINE 0.2 E.U/dL (0.2-1.0)
[2017-02-22 14:15] LABS: UA COLLECTION TYPE STRAIGHT CATH
[2017-02-22] MEDS ORDERED: magnesium hydroxide 30ml (MOM) UD suspension PO PRN (18:00)
[2017-02-22] MEDS ORDERED: potassium Cl 20 mEq SR tablet PO PRN (18:00)
[2017-02-22] MEDS ORDERED: potassium Cl 40MEQ/NS 500ml 500 ML IV PRN ×2 (18:00)
[2017-02-22] MEDS ORDERED: ipratropium/albuterol 3ml nebule NEB PRN (18:00)
[2017-02-22] MEDS ORDERED: mag hydrox/Alum hydrox/simeth 30ml oral suspension PO PRN (18:00)
[2017-02-22] MEDS ORDERED: HYDROcodone/acetaminophen 5mg/325mg tablet PO PRN (18:00)
[2017-02-22] MEDS ORDERED: magnesium 2GM in 50ml NS 50 ML IV PRN (18:00)
[2017-02-22] MEDS ORDERED: magnesium 4gm in 100ml NS 100 ML IV PRN (18:00)
[2017-02-22] MEDS ORDERED: ondansetron/PF 4mg/2ml inj IV PRN (18:00)
[2017-02-22] MEDS ORDERED: acetaminophen 325mg tablet PO PRN ×2 (18:00)
[2017-02-22] MEDS ORDERED: iohexol 350MG/ML 100ml bottle IV ONE (18:12)
[2017-02-22] MEDS: levoFLOXACIN-Levaquin 500mg/D5 100 ML IV SCH (18:59)
[2017-02-22] MEDS: ipratropium/albuterol 3ml nebule NEB SCH ×2 (19:55→23:30)
[2017-02-22] MEDS: methylPREDNISolone sod succ 125mg/2ml vial IV SCH (20:17)
[2017-02-22] MEDS: vancomycin/NS 1 GM ADD-VANTAGE 250 ML IV SCH ×2 (20:17→22:20)
[2017-02-22] MEDS ORDERED: temazepam 15mg capsule PO PRN (21:00)
[2017-02-22] MEDS ORDERED: vancomycin/NS 1 GM ADD-VANTAGE 250 ML IV ONE (21:55)
[2017-02-22] MEDS: gabapentin 400mg capsule PO SCH (22:16)
[2017-02-22] MEDS: HYDROcodone/acetaminophen 10/325mg tab PO PRN (22:17)
[2017-02-22] MEDS ORDERED: mineral oil 133ml enema RC PRN (22:40)
[2017-02-22] MEDS ORDERED: diphenhydrAMINE 25mg capsule PO ONE (22:40)
[2017-02-22 23:00] VITALS: BP 104/44
[2017-02-23] MEDS: methylPREDNISolone sod succ 125mg/2ml vial IV SCH ×4 (01:28→20:02)
[2017-02-23] MEDS: HYDROcodone/acetaminophen 10/325mg tab PO PRN ×3 (01:47→22:40)
[2017-02-23 02:33] LABS: BASOPHILS % (AUTO) 0 % (0-1); EOSINOPHILS % (AUTO) 0.1 % (0-6); HEMATOCRIT 36.2 % (35.0-45.0); HEMOGLOBIN 12.6 g/dl (12.0-16.0); LYMPHOCYTES # (AUTO) 1.8 X10'3 (1.1-4.8); LYMPHOCYTES % (AUTO) 9.4 % (21-51); MEAN CORPUSCULAR HEMOGLOBIN 32.4 PG (27.0-31.0); MEAN CORPUSCULAR HGB CONC 34.7 % (33.0-36.5); MEAN CORPUSCULAR VOLUME 93.4 FL (78-98); MEAN PLATELET VOLUME 8.7 FL (7.4-10.4); MONOCYTES % (AUTO) 5.3 % (2-12); NEUTROPHILS # (AUTO) 16.7 X10'3 (1.8-7.7); NEUTROPHILS % (AUTO) 85.2 % (42-75); PLATELET COUNT 232 X10'3 (140-440); RED BLOOD COUNT 3.87 X10'6 (4.20-5.60); RED CELL DISTRIBUTION WIDTH 14.7 % (11.5-14.5); WHITE BLOOD COUNT 19.5 X10'3 (4.5-11.0)
[2017-02-23 02:44] LABS: ALBUMIN 1.4 G/DL (3.4-5.0); ANION GAP 10 (8-16); BLOOD UREA NITROGEN 10 MG/DL (7-18); CALCIUM 8.6 MG/DL (8.5-10.1); CHLORIDE 101 MMOL/L (99-107); CREATININE 1.25 MG/DL (0.40-0.90); GLUCOSE 154 MG/DL (70-104); MAGNESIUM 1.3 MG/DL (1.5-2.4); POTASSIUM 3.6 MMOL/L (3.5-5.1); SODIUM 140 MMOL/L (135-145); TOTAL CARBON DIOXIDE 28.7 MMOL/L (24-32); eGFR 43 ML/MIN
[2017-02-23 03:00] VITALS: BP 100/40
[2017-02-23 03:12] LABS: ANISOCYTOSIS 1+; PLATELET ESTIMATE NORMAL; POLYCHROMASIA 1+; TOTAL CELLS COUNTED 100
[2017-02-23 06:00] VITALS: BP 106/52
[2017-02-23] MEDS: ipratropium/albuterol 3ml nebule NEB SCH ×5 (07:07→23:09)
[2017-02-23] MEDS ORDERED: spironolactone 50 MG tablet PO SCH (08:00)
[2017-02-23] MEDS: K and/or MAG REPLACEMENT MC SCH (08:00)
[2017-02-23] MEDS ORDERED: furosemide 40mg/4ml inj IV SCH ×2 (08:00→15:00)
[2017-02-23] MEDS: pantoprazole 40mg Tablet.DR PO SCH (08:35)
[2017-02-23] MEDS: levoTHYROXINE 88mcg tablet PO SCH (08:36)
[2017-02-23] MEDS: gabapentin 400mg capsule PO SCH ×3 (08:36→22:39)
[2017-02-23] MEDS: enoxaparin 40mg/0.4ml syringe SQ SCH (08:37)
[2017-02-23] MEDS: levoFLOXACIN-Levaquin 500mg/D5 100 ML IV SCH (08:43)
[2017-02-23] MEDS: magnesium Cl slow-release 64mg tablet PO PRN ×2 (10:24→22:39)
[2017-02-23 11:00] VITALS: BP 101/51
[2017-02-23] MEDS: silver sulfadiazine cream 50gm TP SCH (14:45)
[2017-02-23] MEDS: chlorhexidine gluc 0.4% **topical ** 120ml btl. TP SCH (14:45)
[2017-02-23 15:00] VITALS: BP 90/43
[2017-02-23] MEDS ORDERED: piperacillin/tazo 3.375gm/50ml 50 ML IV SCH (16:00)
[2017-02-23] MEDS: lactobacillus rhamnosus 10,000 MMU CELLS/CAPSULE PO SCH (17:51)
[2017-02-23] MEDS: linezolid 600mg/300ml PREMIX 300 ML IV SCH (20:08)
[2017-02-23 23:00] VITALS: BP 130/51
[2017-02-24 02:00] VITALS: BP 110/60
[2017-02-24] MEDS: methylPREDNISolone sod succ 125mg/2ml vial IV SCH ×3 (02:00→13:10)
[2017-02-24 05:17] LABS: BASOPHILS % (AUTO) 0.2 % (0-1); EOSINOPHILS % (AUTO) 0 % (0-6); HEMOGLOBIN 11.5 g/dl (12.0-16.0); LYMPHOCYTES # (AUTO) 1.6 X10'3 (1.1-4.8); LYMPHOCYTES % (AUTO) 12.6 % (21-51); MEAN CORPUSCULAR HEMOGLOBIN 31.2 PG (27.0-31.0); MEAN CORPUSCULAR HGB CONC 32.8 % (33.0-36.5); MEAN CORPUSCULAR VOLUME 95.3 FL (78-98); MEAN PLATELET VOLUME 8.7 FL (7.4-10.4); MONOCYTES # (AUTO) 0.6 X10'3 (0-0.9); MONOCYTES % (AUTO) 4.8 % (2-12); NEUTROPHILS # (AUTO) 10.6 X10'3 (1.8-7.7); NEUTROPHILS % (AUTO) 82.4 % (42-75); PLATELET COUNT 171 X10'3 (140-440); RED BLOOD COUNT 3.68 X10'6 (4.20-5.60); RED CELL DISTRIBUTION WIDTH 15.2 % (11.5-14.5); WHITE BLOOD COUNT 12.8 X10'3 (4.5-11.0)
[2017-02-24 06:00] VITALS: BP 107/45
[2017-02-24 06:00] LABS: ALBUMIN 1.5 G/DL (3.4-5.0); ANION GAP 6 (8-16); BLOOD UREA NITROGEN 18 MG/DL (7-18); BUN/CREATININE RATIO 17.5 (6.6-38.0); CHLORIDE 99 MMOL/L (99-107); CREATININE 1.03 MG/DL (0.40-0.90); GLUCOSE 206 MG/DL (70-104); MAGNESIUM 1.6 MG/DL (1.5-2.4); SODIUM 137 MMOL/L (135-145); TOTAL CARBON DIOXIDE 32.5 MMOL/L (24-32); eGFR 54 ML/MIN
[2017-02-24] MEDS: ipratropium/albuterol 3ml nebule NEB SCH ×4 (07:37→15:25)
[2017-02-24] MEDS: pantoprazole 40mg Tablet.DR PO SCH (07:48)
[2017-02-24] MEDS: lactobacillus rhamnosus 10,000 MMU CELLS/CAPSULE PO SCH (07:48)
[2017-02-24] MEDS: levoFLOXACIN-Levaquin 500mg/D5 100 ML IV SCH (07:48)
[2017-02-24] MEDS: gabapentin 400mg capsule PO SCH ×2 (07:49→13:09)
[2017-02-24] MEDS: enoxaparin 40mg/0.4ml syringe SQ SCH (07:50)
[2017-02-24] MEDS: potassium Cl 20 mEq SR tablet PO PRN ×2 (07:51→13:09)
[2017-02-24] MEDS: K and/or MAG REPLACEMENT MC SCH (08:00)
[2017-02-24] MEDS ORDERED: potassium Cl 40MEQ/NS 500ml 500 ML IV PRN ×2 (10:15)
[2017-02-24] MEDS ORDERED: potassium Cl 20 mEq SR tablet PO PRN ×2 (10:15)
[2017-02-24] MEDS: HYDROcodone/acetaminophen 10/325mg tab PO PRN ×2 (10:20→14:18)
[2017-02-24] MEDS: levoTHYROXINE 88mcg tablet PO SCH (10:20)
[2017-02-24] MEDS: linezolid 600mg/300ml PREMIX 300 ML IV SCH (10:21)
[2017-02-24] MEDS: chlorhexidine gluc 0.4% **topical ** 120ml btl. TP SCH (10:33)
[2017-02-24] MEDS: silver sulfadiazine cream 50gm TP SCH (10:34)
[2017-02-24 11:00] VITALS: BP 106/43
[2017-02-24 15:00] VITALS: BP 119/45
[2017-02-25] MEDS ORDERED: VANCOMYCIN LEVEL IV ONE (06:30)
[2017-02-25] MEDS ORDERED: K and/or MAG REPLACEMENT MC SCH (08:00)
== END 2017-02-24 17:00 | DRG 871 ==
LOC: ER 11:53 → ED HOLD 17:59 → PCU 3S 20:30
PROVIDERS: ADMIT Family Medicine; ATTEND Internal Medicine
PROC: 5A09357 Assistance with Respiratory Ventilation, Less than 24 Consecutive Hours, Continuous Positive Airway Pressure (ICD-10-PCS; principal; 2017-02-22)
PROC: B32T1ZZ Computerized Tomography (CT Scan) of Left Pulmonary Artery using Low Osmolar Contrast (ICD-10-PCS; 2017-02-22)
PROC: B3201ZZ Computerized Tomography (CT Scan) of Thoracic Aorta using Low Osmolar Contrast (ICD-10-PCS; 2017-02-22)
PROC: B32S1ZZ Computerized Tomography (CT Scan) of Right Pulmonary Artery using Low Osmolar Contrast (ICD-10-PCS; 2017-02-22)
PROC: BB241ZZ Computerized Tomography (CT Scan) of Bilateral Lungs using Low Osmolar Contrast (ICD-10-PCS; 2017-02-22)
DX: A41.9 Sepsis, unspecified organism (principal); J96.01 Acute respiratory failure with hypoxia; E43 Unspecified severe protein-calorie malnutrition; N17.0 Acute kidney failure with tubular necrosis; I11.0 Hypertensive heart disease with heart failure; J18.9 Pneumonia, unspecified organism; I50.30 Unspecified diastolic (congestive) heart failure; L03.115 Cellulitis of right lower limb; J44.0 Chronic obstructive pulmonary disease with (acute) lower respiratory infection; J44.1 Chronic obstructive pulmonary disease with (acute) exacerbation; L03.116 Cellulitis of left lower limb; Z68.44 Body mass index [BMI] 60.0-69.9, adult; L97.909 Non-pressure chronic ulcer of unspecified part of unspecified lower leg with unspecified severity; E66.01 Morbid (severe) obesity due to excess calories; D64.9 Anemia, unspecified; I89.0 Lymphedema, not elsewhere classified; E03.9 Hypothyroidism, unspecified; E87.6 Hypokalemia; F17.210 Nicotine dependence, cigarettes, uncomplicated; Z90.49 Acquired absence of other specified parts of digestive tract; Z88.1 Allergy status to other antibiotic agents; Z88.8 Allergy status to other drugs, medicaments and biological substances
CPT/HCPCS: 36415; 71010; 71275; 80048; 80053; 81003; 83605; 83735; 83880; 84145; 84484; 85025; 85610; 85730; 87040; 87070; 92616; 93005; 93306; 93925; 93970; 94640; 94660; 94760; 96374; 96375; 97110; 97161; 97530; 99291; A6213; A6223; A6446; A6449; C1758; J1650; J1940; J1956; J2020; J2930; J3370; J7030; Q0163; Q9967

== ENCOUNTER 2017-05-14 15:43 | Inpatient (IN) | payer MEDICARE, MEDICAID ==
[~2017-05-14] VITALS: Ht 157.5 cm; Wt 129.6 kg
[~2017-05-14 15:43] MED LIST changes: -DOXY100C2 PO
[2017-05-14 16:36] LABS: BASOPHILS % (AUTO) 0.3 % (0-1); EOSINOPHILS # (AUTO) 0.2 X10'3 (0-0.9); EOSINOPHILS % (AUTO) 2.1 % (0-6); HEMATOCRIT 39.8 % (35.0-45.0); HEMOGLOBIN 13.5 g/dl (12.0-16.0); LYMPHOCYTES % (AUTO) 17.2 % (21-51); MEAN CORPUSCULAR HEMOGLOBIN 31.7 PG (27.0-31.0); MEAN CORPUSCULAR HGB CONC 33.9 % (33.0-36.5); MEAN CORPUSCULAR VOLUME 93.5 FL (78-98); MEAN PLATELET VOLUME 7.9 FL (7.4-10.4); MONOCYTES # (AUTO) 0.7 X10'3 (0-0.9); MONOCYTES % (AUTO) 5.9 % (2-12); NEUTROPHILS # (AUTO) 8.5 X10'3 (1.8-7.7); NEUTROPHILS % (AUTO) 74.5 % (42-75); PLATELET COUNT 351 X10'3 (140-440); RED BLOOD COUNT 4.25 X10'6 (4.20-5.60); RED CELL DISTRIBUTION WIDTH 15.5 % (11.5-14.5); WHITE BLOOD COUNT 11.4 X10'3 (4.5-11.0)
[2017-05-14 17:05] LABS: ALANINE AMINOTRANSFERASE 20 U/L (12-78); ALBUMIN 3.1 G/DL (3.4-5.0); ALBUMIN/GLOBULIN RATIO 0.6 (1.1-1.5); ALKALINE PHOSPHATASE 66 IU/L (46-116); ANION GAP 10 (8-16); ASPARTATE AMINO TRANSFERASE 15 U/L (10-37); BILIRUBIN,TOTAL 0.5 MG/DL (0.1-1.0); BLOOD UREA NITROGEN 14 MG/DL (7-18); BUN/CREATININE RATIO 13.1 (6.6-38.0); CALCIUM 9.7 MG/DL (8.5-10.1); CHLORIDE 93 MMOL/L (99-107); CREATININE 1.07 MG/DL (0.40-0.90); GLUCOSE 157 MG/DL (70-104); MAGNESIUM 1.9 MG/DL (1.5-2.4); POTASSIUM 3.7 MMOL/L (3.5-5.1); SODIUM 135 MMOL/L (135-145); TOTAL CARBON DIOXIDE 32.4 MMOL/L (24-32); TOTAL PROTEIN 8.1 G/DL (6.4-8.2); eGFR 51 ML/MIN
[2017-05-14] MEDS ORDERED: normal saline 1000ML IV soln IV ONE (17:05)
[2017-05-14] MEDS ORDERED: morphine 4 MG/ML inj SYRINge IV PRN (18:35)
[2017-05-14] MEDS ORDERED: mag hydrox/Alum hydrox/simeth 30ml oral suspension PO PRN (18:35)
[2017-05-14] MEDS ORDERED: diphenhydrAMINE 50 mg/ml inj IV PRN (18:35)
[2017-05-14] MEDS ORDERED: HYDROmorphone inj. 0.5 MG/0.5 ML DISP.SYRIN IV PRN ×2 (18:35)
[2017-05-14] MEDS ORDERED: acetaminophen 325mg tablet PO PRN ×2 (18:35)
[2017-05-14] MEDS ORDERED: bisacodyl 10mg suppository rectal RC PRN (18:35)
[2017-05-14] MEDS ORDERED: HYDROcodone/acetaminophen 5mg/325mg tablet PO PRN (18:35)
[2017-05-14] MEDS ORDERED: metoclopramide 5 mg/ml inj IV PRN (18:35)
[2017-05-14] MEDS ORDERED: magnesium hydroxide 30ml (MOM) UD suspension PO PRN (18:35)
[2017-05-14] MEDS ORDERED: ondansetron/PF 4mg/2ml inj IV PRN (18:35)
[2017-05-14] MEDS ORDERED: acetaminophen 650mg rectal suppository RC PRN (18:35)
[2017-05-14] MEDS: HYDROcodone/acetaminophen 10/325mg tab PO PRN (19:37)
[2017-05-14] MEDS: docusate sod 100mg capsule PO SCH (19:37)
[2017-05-14] MEDS: meropenem inj 1 GM in normal saline 100ml IV soln 100 ML IV SCH (19:37)
[2017-05-14] MEDS: gabapentin 400mg capsule PO SCH (22:19)
[2017-05-14 23:30] VITALS: BP 100/52
[2017-05-15] MEDS: spironolactone 25 MG tablet PO SCH ×3 (00:16→20:44)
[2017-05-15] MEDS: heparin, porcine 5000 units/ml vial SQ SCH ×4 (00:16→23:24)
[2017-05-15 05:12] LABS: BASOPHILS % (AUTO) 0.3 % (0-1); EOSINOPHILS # (AUTO) 0.2 X10'3 (0-0.9); EOSINOPHILS % (AUTO) 2.1 % (0-6); HEMATOCRIT 31.9 % (35.0-45.0); HEMOGLOBIN 10.7 g/dl (12.0-16.0); LYMPHOCYTES # (AUTO) 1.8 X10'3 (1.1-4.8); LYMPHOCYTES % (AUTO) 21.3 % (21-51); MEAN CORPUSCULAR HEMOGLOBIN 31.3 PG (27.0-31.0); MEAN CORPUSCULAR HGB CONC 33.5 % (33.0-36.5); MEAN CORPUSCULAR VOLUME 93.5 FL (78-98); MEAN PLATELET VOLUME 7.9 FL (7.4-10.4); MONOCYTES # (AUTO) 0.6 X10'3 (0-0.9); MONOCYTES % (AUTO) 6.8 % (2-12); NEUTROPHILS # (AUTO) 5.9 X10'3 (1.8-7.7); NEUTROPHILS % (AUTO) 69.5 % (42-75); PLATELET COUNT 270 X10'3 (140-440); RED BLOOD COUNT 3.41 X10'6 (4.20-5.60); RED CELL DISTRIBUTION WIDTH 14.8 % (11.5-14.5); WHITE BLOOD COUNT 8.6 X10'3 (4.5-11.0)
[2017-05-15 05:25] LABS: ALANINE AMINOTRANSFERASE 14 U/L (12-78); ALBUMIN/GLOBULIN RATIO 0.5 (1.1-1.5); ALKALINE PHOSPHATASE 46 IU/L (46-116); ANION GAP 5 (8-16); ASPARTATE AMINO TRANSFERASE 11 U/L (10-37); BILIRUBIN,TOTAL 0.3 MG/DL (0.1-1.0); BLOOD UREA NITROGEN 9 MG/DL (7-18); BUN/CREATININE RATIO 10.2 (6.6-38.0); CALCIUM 8.5 MG/DL (8.5-10.1); CHLORIDE 103 MMOL/L (99-107); CREATININE 0.88 MG/DL (0.40-0.90); GLUCOSE 94 MG/DL (70-104); POTASSIUM 3.3 MMOL/L (3.5-5.1); SODIUM 142 MMOL/L (135-145); TOTAL CARBON DIOXIDE 33.7 MMOL/L (24-32); TOTAL PROTEIN 5.9 G/DL (6.4-8.2); eGFR 64 ML/MIN
[2017-05-15 08:00] VITALS: BP 108/44
[2017-05-15] MEDS: docusate sod 100mg capsule PO SCH ×2 (08:00→20:46)
[2017-05-15] MEDS ORDERED: spironolactone 25 MG tablet PO SCH (08:00)
[2017-05-15] MEDS ORDERED: spironolactone 50 MG tablet PO SCH (08:00)
[2017-05-15] MEDS ORDERED: pantoprazole 40mg Tablet.DR PO SCH (08:00)
[2017-05-15] MEDS: fluticasone/vilanterol 200mcg/25mcg inhaler IH SCH (08:00)
[2017-05-15] MEDS: gabapentin 400mg capsule PO SCH ×3 (08:09→20:47)
[2017-05-15] MEDS: pantoprazole 40mg Tablet.DR PO SCH (08:09)
[2017-05-15] MEDS: meropenem inj 1 GM in normal saline 100ml IV soln 100 ML IV SCH ×3 (08:11→20:43)
[2017-05-15] MEDS: HYDROcodone/acetaminophen 10/325mg tab PO PRN ×3 (08:23→20:46)
[2017-05-15] MEDS ORDERED: potassium Cl 40MEQ/NS 500ml 500 ML IV PRN ×2 (08:55)
[2017-05-15] MEDS ORDERED: potassium Cl 20 mEq SR tablet PO PRN ×2 (08:55)
[2017-05-15] MEDS ORDERED: SPIR50TA3 PO (09:12)
[2017-05-15] MEDS ORDERED: HYDR-568 PO (09:12)
[2017-05-15] MEDS ORDERED: LEVO175T2 PO (09:13)
[2017-05-15] MEDS ORDERED: LIDOcaine 1% 30ml vial 5 ML in potassium Cl 40MEQ/NS 500ml 500 ML IV ONE (09:38)
[2017-05-15] MEDS: levoTHYROXINE 88mcg tablet PO SCH (10:25)
[2017-05-15 12:00] VITALS: BP 101/40
[2017-05-15 18:00] VITALS: BP 102/47
[2017-05-16] VITALS: BP 109/50
[2017-05-16 04:07] LABS: BASOPHILS % (AUTO) 0.1 % (0-1); EOSINOPHILS # (AUTO) 0.2 X10'3 (0-0.9); EOSINOPHILS % (AUTO) 2.8 % (0-6); HEMATOCRIT 30.5 % (35.0-45.0); HEMOGLOBIN 10.2 g/dl (12.0-16.0); LYMPHOCYTES % (AUTO) 23.2 % (21-51); MEAN CORPUSCULAR HEMOGLOBIN 31.4 PG (27.0-31.0); MEAN CORPUSCULAR HGB CONC 33.4 % (33.0-36.5); MEAN CORPUSCULAR VOLUME 93.9 FL (78-98); MEAN PLATELET VOLUME 7.5 FL (7.4-10.4); MONOCYTES # (AUTO) 0.7 X10'3 (0-0.9); MONOCYTES % (AUTO) 7.8 % (2-12); NEUTROPHILS # (AUTO) 5.6 X10'3 (1.8-7.7); NEUTROPHILS % (AUTO) 66.1 % (42-75); PLATELET COUNT 264 X10'3 (140-440); RED BLOOD COUNT 3.25 X10'6 (4.20-5.60); RED CELL DISTRIBUTION WIDTH 15.8 % (11.5-14.5); WHITE BLOOD COUNT 8.5 X10'3 (4.5-11.0)
[2017-05-16 04:38] LABS: ALANINE AMINOTRANSFERASE 14 U/L (12-78); ALBUMIN/GLOBULIN RATIO 0.6 (1.1-1.5); ALKALINE PHOSPHATASE 42 IU/L (46-116); ANION GAP 5 (8-16); ASPARTATE AMINO TRANSFERASE 10 U/L (10-37); BILIRUBIN,TOTAL 0.3 MG/DL (0.1-1.0); BLOOD UREA NITROGEN 9 MG/DL (7-18); BUN/CREATININE RATIO 10.8 (6.6-38.0); CALCIUM 8.7 MG/DL (8.5-10.1); CHLORIDE 103 MMOL/L (99-107); CREATININE 0.83 MG/DL (0.40-0.90); GLUCOSE 129 MG/DL (70-104); POTASSIUM 3.7 MMOL/L (3.5-5.1); SODIUM 139 MMOL/L (135-145); TOTAL CARBON DIOXIDE 30.8 MMOL/L (24-32); TOTAL PROTEIN 5.6 G/DL (6.4-8.2); eGFR 69 ML/MIN
[2017-05-16 07:00] VITALS: BP 100/48
[2017-05-16] MEDS: docusate sod 100mg capsule PO SCH ×2 (07:50→20:18)
[2017-05-16] MEDS: spironolactone 25 MG tablet PO SCH ×2 (07:50→20:17)
[2017-05-16] MEDS: pantoprazole 40mg Tablet.DR PO SCH (07:50)
[2017-05-16] MEDS: gabapentin 400mg capsule PO SCH ×3 (07:50→20:17)
[2017-05-16] MEDS: heparin, porcine 5000 units/ml vial SQ SCH ×2 (07:51→17:07)
[2017-05-16] MEDS: meropenem inj 1 GM in normal saline 100ml IV soln 100 ML IV SCH (07:53)
[2017-05-16] MEDS: HYDROcodone/acetaminophen 10/325mg tab PO PRN ×2 (07:53→13:56)
[2017-05-16] MEDS: K and/or MAG REPLACEMENT MC SCH (08:00)
[2017-05-16] MEDS: fluticasone/vilanterol 200mcg/25mcg inhaler IH SCH (08:00)
[2017-05-16] MEDS: levoTHYROXINE 88mcg tablet PO SCH (09:59)
[2017-05-16 11:00] VITALS: BP 111/34
[2017-05-16] MEDS: diphenhydrAMINE 25mg capsule PO PRN ×2 (13:54→20:17)
[2017-05-16 16:34] VITALS: BP 111/45
[2017-05-16 20:00] VITALS: BP 110/56
[2017-05-16] MEDS: lactobacillus rhamnosus 10,000 MMU CELLS/CAPSULE PO SCH (20:17)
[2017-05-16] MEDS: piperacillin/tazo 3.375gm/50ml 50 ML IV SCH (20:18)
[2017-05-17] VITALS: BP 120/54
[2017-05-17] MEDS: heparin, porcine 5000 units/ml vial SQ SCH ×4 (00:20→22:03)
[2017-05-17] MEDS: HYDROcodone/acetaminophen 10/325mg tab PO PRN ×3 (02:21→15:12)
[2017-05-17] MEDS: piperacillin/tazo 3.375gm/50ml 50 ML IV SCH ×2 (02:22→07:37)
[2017-05-17 02:30] VITALS: BP 117/89
[2017-05-17 05:05] LABS: BASOPHILS % (AUTO) 0.1 % (0-1); EOSINOPHILS # (AUTO) 0.1 X10'3 (0-0.9); EOSINOPHILS % (AUTO) 1.1 % (0-6); HEMATOCRIT 34.1 % (35.0-45.0); HEMOGLOBIN 11.6 g/dl (12.0-16.0); LYMPHOCYTES # (AUTO) 0.2 X10'3 (1.1-4.8); LYMPHOCYTES % (AUTO) 1.5 % (21-51); MEAN CORPUSCULAR HGB CONC 34.2 % (33.0-36.5); MEAN CORPUSCULAR VOLUME 93.6 FL (78-98); MEAN PLATELET VOLUME 8.3 FL (7.4-10.4); MONOCYTES # (AUTO) 0.1 X10'3 (0-0.9); MONOCYTES % (AUTO) 0.9 % (2-12); NEUTROPHILS # (AUTO) 11.1 X10'3 (1.8-7.7); NEUTROPHILS % (AUTO) 96.4 % (42-75); PLATELET COUNT 272 X10'3 (140-440); RED BLOOD COUNT 3.64 X10'6 (4.20-5.60); RED CELL DISTRIBUTION WIDTH 15.4 % (11.5-14.5); WHITE BLOOD COUNT 11.5 X10'3 (4.5-11.0)
[2017-05-17 05:53] LABS: ALANINE AMINOTRANSFERASE 13 U/L (12-78); ALBUMIN/GLOBULIN RATIO 0.5 (1.1-1.5); ALKALINE PHOSPHATASE 50 IU/L (46-116); ANION GAP 9 (8-16); ASPARTATE AMINO TRANSFERASE 15 U/L (10-37); BILIRUBIN,TOTAL 0.6 MG/DL (0.1-1.0); BLOOD UREA NITROGEN 8 MG/DL (7-18); BUN/CREATININE RATIO 8.8 (6.6-38.0); CALCIUM 9.1 MG/DL (8.5-10.1); CHLORIDE 101 MMOL/L (99-107); CREATININE 0.91 MG/DL (0.40-0.90); GLUCOSE 112 MG/DL (70-104); POTASSIUM 3.8 MMOL/L (3.5-5.1); SODIUM 139 MMOL/L (135-145); TOTAL CARBON DIOXIDE 28.7 MMOL/L (24-32); eGFR 62 ML/MIN
[2017-05-17 07:00] VITALS: BP 139/55
[2017-05-17 07:05] VITALS: BP 137/55
[2017-05-17] MEDS: levoTHYROXINE 88mcg tablet PO SCH (07:33)
[2017-05-17] MEDS: lactobacillus rhamnosus 10,000 MMU CELLS/CAPSULE PO SCH ×2 (07:36→22:01)
[2017-05-17] MEDS: pantoprazole 40mg Tablet.DR PO SCH (07:36)
[2017-05-17] MEDS: gabapentin 400mg capsule PO SCH ×3 (07:36→22:01)
[2017-05-17] MEDS: docusate sod 100mg capsule PO SCH ×2 (07:36→22:01)
[2017-05-17] MEDS: spironolactone 25 MG tablet PO SCH ×2 (07:37→22:01)
[2017-05-17] MEDS: diphenhydrAMINE 25mg capsule PO PRN (07:40)
[2017-05-17] MEDS: fluticasone/vilanterol 200mcg/25mcg inhaler IH SCH (08:00)
[2017-05-17] MEDS: K and/or MAG REPLACEMENT MC SCH (08:00)
[2017-05-17 11:00] VITALS: BP 101/49
[2017-05-17] MEDS ORDERED: methylPREDNISolone sod succ 125mg/2ml vial IV ONE (11:15)
[2017-05-17] MEDS ORDERED: famotidine/PF 10 mg/ml inj IV ONE (11:15)
[2017-05-17] MEDS: diphenhydrAMINE 50 mg/ml inj IV SCH ×2 (13:14→22:01)
[2017-05-17] MEDS: gentamicin inj 410 MG in normal saline 100ml IV soln 89.75 ML IV SCH (15:00)
[2017-05-17] MEDS: meropenem inj 1 GM in normal saline 100ml IV soln 100 ML IV SCH (22:01)
[2017-05-17] MEDS: famotidine 20mg tablet PO SCH (22:02)
[2017-05-18] MEDS: diphenhydrAMINE 50 mg/ml inj IV SCH ×4 (04:13→20:38)
[2017-05-18 06:02] LABS: BASOPHILS % (AUTO) 0.1 % (0-1); EOSINOPHILS # (AUTO) 0.1 X10'3 (0-0.9); EOSINOPHILS % (AUTO) 1.1 % (0-6); HEMATOCRIT 32.8 % (35.0-45.0); HEMOGLOBIN 11.2 g/dl (12.0-16.0); LYMPHOCYTES # (AUTO) 0.4 X10'3 (1.1-4.8); LYMPHOCYTES % (AUTO) 3.9 % (21-51); MEAN CORPUSCULAR HEMOGLOBIN 31.9 PG (27.0-31.0); MEAN CORPUSCULAR HGB CONC 34.1 % (33.0-36.5); MEAN CORPUSCULAR VOLUME 93.5 FL (78-98); MONOCYTES # (AUTO) 0.3 X10'3 (0-0.9); MONOCYTES % (AUTO) 3.3 % (2-12); NEUTROPHILS % (AUTO) 91.6 % (42-75); PLATELET COUNT 253 X10'3 (140-440); RED CELL DISTRIBUTION WIDTH 15.2 % (11.5-14.5); WHITE BLOOD COUNT 9.8 X10'3 (4.5-11.0)
[2017-05-18 06:30] LABS: ALANINE AMINOTRANSFERASE 18 U/L (12-78); ALBUMIN 1.9 G/DL (3.4-5.0); ALBUMIN/GLOBULIN RATIO 0.5 (1.1-1.5); ALKALINE PHOSPHATASE 50 IU/L (46-116); ANION GAP 3 (8-16); ASPARTATE AMINO TRANSFERASE 13 U/L (10-37); BILIRUBIN,TOTAL 0.4 MG/DL (0.1-1.0); BLOOD UREA NITROGEN 14 MG/DL (7-18); BUN/CREATININE RATIO 13.7 (6.6-38.0); CALCIUM 8.9 MG/DL (8.5-10.1); CHLORIDE 100 MMOL/L (99-107); CREATININE 1.02 MG/DL (0.40-0.90); GLUCOSE 162 MG/DL (70-104); POTASSIUM 3.9 MMOL/L (3.5-5.1); SODIUM 132 MMOL/L (135-145); TOTAL CARBON DIOXIDE 29.4 MMOL/L (24-32); TOTAL PROTEIN 5.9 G/DL (6.4-8.2); eGFR 54 ML/MIN
[2017-05-18 07:58] VITALS: BP 109/47
[2017-05-18] MEDS: fluticasone/vilanterol 200mcg/25mcg inhaler IH SCH (08:00)
[2017-05-18] MEDS: K and/or MAG REPLACEMENT MC SCH (08:00)
[2017-05-18] MEDS: meropenem inj 1 GM in normal saline 100ml IV soln 100 ML IV SCH (08:23)
[2017-05-18] MEDS: gabapentin 400mg capsule PO SCH ×3 (08:24→20:39)
[2017-05-18] MEDS: famotidine 20mg tablet PO SCH ×2 (08:24→20:39)
[2017-05-18] MEDS: lactobacillus rhamnosus 10,000 MMU CELLS/CAPSULE PO SCH ×2 (08:24→20:39)
[2017-05-18] MEDS: docusate sod 100mg capsule PO SCH ×2 (08:24→20:39)
[2017-05-18] MEDS: levoTHYROXINE 88mcg tablet PO SCH (08:24)
[2017-05-18] MEDS: HYDROcodone/acetaminophen 10/325mg tab PO PRN ×3 (08:24→20:39)
[2017-05-18] MEDS: pantoprazole 40mg Tablet.DR PO SCH (08:25)
[2017-05-18] MEDS: heparin, porcine 5000 units/ml vial SQ SCH ×3 (08:25→22:26)
[2017-05-18] MEDS: spironolactone 25 MG tablet PO SCH ×2 (08:28→20:40)
[2017-05-18 13:44] VITALS: BP 174/68
[2017-05-18] MEDS: gentamicin inj 410 MG in normal saline 100ml IV soln 89.75 ML IV SCH (17:29)
[2017-05-18 18:00] VITALS: BP 129/52
[2017-05-18] MEDS: morphine 4 MG/ML inj SYRINge IV PRN (22:37)
[2017-05-19] MEDS: diphenhydrAMINE 50 mg/ml inj IV SCH ×3 (02:33→14:00)
[2017-05-19 06:45] VITALS: BP 105/47
[2017-05-19] MEDS: docusate sod 100mg capsule PO SCH ×2 (08:00→20:00)
[2017-05-19] MEDS: K and/or MAG REPLACEMENT MC SCH (08:00)
[2017-05-19] MEDS: lactobacillus rhamnosus 10,000 MMU CELLS/CAPSULE PO SCH ×2 (08:49→20:48)
[2017-05-19] MEDS: gabapentin 400mg capsule PO SCH ×3 (08:49→20:48)
[2017-05-19] MEDS: famotidine 20mg tablet PO SCH (08:49)
[2017-05-19] MEDS: pantoprazole 40mg Tablet.DR PO SCH (08:49)
[2017-05-19] MEDS: HYDROcodone/acetaminophen 10/325mg tab PO PRN ×2 (08:49→20:50)
[2017-05-19] MEDS: spironolactone 25 MG tablet PO SCH (08:49)
[2017-05-19] MEDS: heparin, porcine 5000 units/ml vial SQ SCH ×2 (08:51→16:49)
[2017-05-19] MEDS: levoTHYROXINE 88mcg tablet PO SCH (10:16)
[2017-05-19 11:00] VITALS: BP 98/40
[2017-05-19] MEDS: gentamicin inj 410 MG in normal saline 100ml IV soln 89.75 ML IV SCH (14:28)
[2017-05-19] MEDS: morphine 4 MG/ML inj SYRINge IV PRN (16:49)
[2017-05-19] MEDS: fluticasone/vilanterol 200mcg/25mcg inhaler IH SCH (18:03)
[2017-05-19 19:00] VITALS: BP 92/47
[2017-05-19] MEDS: spironolactone 50 MG tablet PO SCH (20:00)
[2017-05-20] VITALS: BP 92/48
[2017-05-20] MEDS: heparin, porcine 5000 units/ml vial SQ SCH ×3 (01:13→17:03)
[2017-05-20] MEDS: K and/or MAG REPLACEMENT MC SCH (08:00)
[2017-05-20] MEDS: docusate sod 100mg capsule PO SCH ×2 (09:00→20:00)
[2017-05-20] MEDS: lactobacillus rhamnosus 10,000 MMU CELLS/CAPSULE PO SCH ×2 (09:09→20:34)
[2017-05-20] MEDS: spironolactone 50 MG tablet PO SCH ×2 (09:09→20:34)
[2017-05-20] MEDS: gabapentin 400mg capsule PO SCH ×3 (09:09→20:33)
[2017-05-20] MEDS: pantoprazole 40mg Tablet.DR PO SCH (09:10)
[2017-05-20] MEDS: HYDROcodone/acetaminophen 10/325mg tab PO PRN ×3 (09:40→20:34)
[2017-05-20 10:00] LABS: BASOPHILS % (AUTO) 0.4 % (0-1); EOSINOPHILS # (AUTO) 0.7 X10'3 (0-0.9); EOSINOPHILS % (AUTO) 8.2 % (0-6); HEMATOCRIT 37.3 % (35.0-45.0); HEMOGLOBIN 12.8 g/dl (12.0-16.0); LYMPHOCYTES # (AUTO) 1.6 X10'3 (1.1-4.8); LYMPHOCYTES % (AUTO) 18.6 % (21-51); MEAN CORPUSCULAR HGB CONC 34.2 % (33.0-36.5); MEAN CORPUSCULAR VOLUME 93.5 FL (78-98); MEAN PLATELET VOLUME 7.6 FL (7.4-10.4); MONOCYTES # (AUTO) 0.7 X10'3 (0-0.9); NEUTROPHILS # (AUTO) 5.5 X10'3 (1.8-7.7); NEUTROPHILS % (AUTO) 64.8 % (42-75); PLATELET COUNT 318 X10'3 (140-440); RED BLOOD COUNT 3.99 X10'6 (4.20-5.60); RED CELL DISTRIBUTION WIDTH 15.8 % (11.5-14.5); WHITE BLOOD COUNT 8.6 X10'3 (4.5-11.0)
[2017-05-20 10:16] LABS: ALANINE AMINOTRANSFERASE 21 U/L (12-78); ALBUMIN 2.4 G/DL (3.4-5.0); ALBUMIN/GLOBULIN RATIO 0.6 (1.1-1.5); ALKALINE PHOSPHATASE 51 IU/L (46-116); ANION GAP 8 (8-16); ASPARTATE AMINO TRANSFERASE 12 U/L (10-37); BILIRUBIN,TOTAL 0.2 MG/DL (0.1-1.0); BLOOD UREA NITROGEN 12 MG/DL (7-18); BUN/CREATININE RATIO 12.2 (6.6-38.0); CALCIUM 9.2 MG/DL (8.5-10.1); CHLORIDE 104 MMOL/L (99-107); CREATININE 0.98 MG/DL (0.40-0.90); GLUCOSE 111 MG/DL (70-104); POTASSIUM 3.9 MMOL/L (3.5-5.1); SODIUM 141 MMOL/L (135-145); TOTAL CARBON DIOXIDE 28.8 MMOL/L (24-32); TOTAL PROTEIN 6.7 G/DL (6.4-8.2); eGFR 57 ML/MIN
[2017-05-20 11:10] VITALS: BP 107/60
[2017-05-20] MEDS: levoTHYROXINE 88mcg tablet PO SCH (12:05)
[2017-05-20] MEDS: gentamicin inj 410 MG in normal saline 100ml IV soln 89.75 ML IV SCH (13:56)
[2017-05-20 18:00] VITALS: BP 147/67
[2017-05-21] VITALS: BP 161/67
[2017-05-21] MEDS: heparin, porcine 5000 units/ml vial SQ SCH ×3 (00:16→17:12)
[2017-05-21] MEDS: HYDROcodone/acetaminophen 10/325mg tab PO PRN ×4 (00:16→22:34)
[2017-05-21 07:45] VITALS: BP 136/68
[2017-05-21] MEDS: K and/or MAG REPLACEMENT MC SCH (08:00)
[2017-05-21] MEDS: docusate sod 100mg capsule PO SCH ×2 (08:00→20:44)
[2017-05-21] MEDS: fluticasone/vilanterol 200mcg/25mcg inhaler IH SCH (08:00)
[2017-05-21] MEDS: spironolactone 50 MG tablet PO SCH ×2 (09:14→20:44)
[2017-05-21] MEDS: lactobacillus rhamnosus 10,000 MMU CELLS/CAPSULE PO SCH ×2 (09:14→20:44)
[2017-05-21] MEDS: gabapentin 400mg capsule PO SCH ×3 (09:15→20:45)
[2017-05-21] MEDS: pantoprazole 40mg Tablet.DR PO SCH (09:15)
[2017-05-21] MEDS: levoTHYROXINE 88mcg tablet PO SCH (10:33)
[2017-05-21 11:52] VITALS: BP 120/71
[2017-05-21 20:00] VITALS: BP 115/68
[2017-05-22] VITALS: BP 111/48
[2017-05-22] MEDS: heparin, porcine 5000 units/ml vial SQ SCH ×4 (00:07→15:47)
[2017-05-22 08:00] VITALS: BP 101/62
[2017-05-22] MEDS: K and/or MAG REPLACEMENT MC SCH (08:00)
[2017-05-22] MEDS: fluticasone/vilanterol 200mcg/25mcg inhaler IH SCH (08:00)
[2017-05-22] MEDS: HYDROcodone/acetaminophen 10/325mg tab PO PRN ×3 (09:08→22:28)
[2017-05-22] MEDS: levoTHYROXINE 88mcg tablet PO SCH (09:09)
[2017-05-22] MEDS: pantoprazole 40mg Tablet.DR PO SCH (09:09)
[2017-05-22] MEDS: spironolactone 50 MG tablet PO SCH ×2 (09:09→22:28)
[2017-05-22] MEDS: docusate sod 100mg capsule PO SCH ×2 (09:10→22:27)
[2017-05-22] MEDS: lactobacillus rhamnosus 10,000 MMU CELLS/CAPSULE PO SCH ×2 (09:10→22:28)
[2017-05-22] MEDS: gabapentin 400mg capsule PO SCH ×3 (09:10→22:27)
[2017-05-22 09:52] LABS: BASOPHILS % (AUTO) 0.3 % (0-1); EOSINOPHILS # (AUTO) 0.6 X10'3 (0-0.9); EOSINOPHILS % (AUTO) 5.1 % (0-6); HEMATOCRIT 36.6 % (35.0-45.0); HEMOGLOBIN 12.5 g/dl (12.0-16.0); LYMPHOCYTES # (AUTO) 2.2 X10'3 (1.1-4.8); LYMPHOCYTES % (AUTO) 19.5 % (21-51); MEAN CORPUSCULAR HGB CONC 34.2 % (33.0-36.5); MEAN CORPUSCULAR VOLUME 93.4 FL (78-98); MEAN PLATELET VOLUME 7.7 FL (7.4-10.4); MONOCYTES # (AUTO) 0.8 X10'3 (0-0.9); MONOCYTES % (AUTO) 7.6 % (2-12); NEUTROPHILS # (AUTO) 7.5 X10'3 (1.8-7.7); NEUTROPHILS % (AUTO) 67.5 % (42-75); PLATELET COUNT 299 X10'3 (140-440); RED BLOOD COUNT 3.92 X10'6 (4.20-5.60); RED CELL DISTRIBUTION WIDTH 15.6 % (11.5-14.5); WHITE BLOOD COUNT 11.2 X10'3 (4.5-11.0)
[2017-05-22 10:06] LABS: ALANINE AMINOTRANSFERASE 19 U/L (12-78); ALBUMIN 2.3 G/DL (3.4-5.0); ALBUMIN/GLOBULIN RATIO 0.5 (1.1-1.5); ALKALINE PHOSPHATASE 49 IU/L (46-116); ANION GAP 6 (8-16); ASPARTATE AMINO TRANSFERASE 16 U/L (10-37); BILIRUBIN,TOTAL 0.3 MG/DL (0.1-1.0); BLOOD UREA NITROGEN 11 MG/DL (7-18); BUN/CREATININE RATIO 11.8 (6.6-38.0); CALCIUM 9.3 MG/DL (8.5-10.1); CHLORIDE 103 MMOL/L (99-107); CREATININE 0.93 MG/DL (0.40-0.90); GLUCOSE 131 MG/DL (70-104); POTASSIUM 4.2 MMOL/L (3.5-5.1); SODIUM 142 MMOL/L (135-145); TOTAL CARBON DIOXIDE 33.3 MMOL/L (24-32); TOTAL PROTEIN 6.5 G/DL (6.4-8.2); eGFR 60 ML/MIN
[2017-05-22 11:00] VITALS: BP 97/51
[2017-05-22] MEDS ORDERED: gentamicin inj 410 MG in normal saline 100ml IV soln 89.75 ML IV SCH (14:00)
[2017-05-22 20:00] VITALS: BP 113/57
[2017-05-22] MEDS: temazepam 15mg capsule PO PRN (23:41)
[2017-05-23] VITALS (24 sets, daily range): BP systolic 88–163; BP diastolic 39–92
[2017-05-23] MEDS ORDERED: [UNRECOGNIZED DRUG - OTHER] IV ONE (01:00)
[2017-05-23 01:38] LABS: ALANINE AMINOTRANSFERASE 18 U/L (12-78); ALBUMIN 2.1 G/DL (3.4-5.0); ALBUMIN/GLOBULIN RATIO 0.5 (1.1-1.5); ALKALINE PHOSPHATASE 49 IU/L (46-116); ANION GAP 4 (8-16); ASPARTATE AMINO TRANSFERASE 14 U/L (10-37); BILIRUBIN,TOTAL 0.2 MG/DL (0.1-1.0); BLOOD UREA NITROGEN 12 MG/DL (7-18); CALCIUM 9.1 MG/DL (8.5-10.1); CHLORIDE 103 MMOL/L (99-107); GLUCOSE 134 MG/DL (70-104); POTASSIUM 3.8 MMOL/L (3.5-5.1); SODIUM 140 MMOL/L (135-145); TOTAL CARBON DIOXIDE 32.6 MMOL/L (24-32); TOTAL PROTEIN 6.1 G/DL (6.4-8.2); eGFR 55 ML/MIN
[2017-05-23 02:06] LABS: BASOPHILS % (AUTO) 0.4 % (0-1); EOSINOPHILS # (AUTO) 0.5 X10'3 (0-0.9); EOSINOPHILS % (AUTO) 5.6 % (0-6); HEMATOCRIT 34.5 % (35.0-45.0); HEMOGLOBIN 11.6 g/dl (12.0-16.0); LYMPHOCYTES # (AUTO) 2.6 X10'3 (1.1-4.8); LYMPHOCYTES % (AUTO) 26.4 % (21-51); MEAN CORPUSCULAR HEMOGLOBIN 31.9 PG (27.0-31.0); MEAN CORPUSCULAR HGB CONC 33.6 % (33.0-36.5); MEAN CORPUSCULAR VOLUME 95.1 FL (78-98); MEAN PLATELET VOLUME 8.1 FL (7.4-10.4); MONOCYTES # (AUTO) 0.6 X10'3 (0-0.9); MONOCYTES % (AUTO) 6.6 % (2-12); NEUTROPHILS # (AUTO) 5.9 X10'3 (1.8-7.7); PLATELET COUNT 301 X10'3 (140-440); RED BLOOD COUNT 3.63 X10'6 (4.20-5.60); RED CELL DISTRIBUTION WIDTH 15.6 % (11.5-14.5); WHITE BLOOD COUNT 9.8 X10'3 (4.5-11.0)
[2017-05-23] MEDS: heparin, porcine 5000 units/ml vial SQ SCH ×3 (06:58→23:55)
[2017-05-23] MEDS: docusate sod 100mg capsule PO SCH ×2 (07:39→22:47)
[2017-05-23] MEDS: lactobacillus rhamnosus 10,000 MMU CELLS/CAPSULE PO SCH ×2 (07:40→22:47)
[2017-05-23] MEDS: pantoprazole 40mg Tablet.DR PO SCH (07:40)
[2017-05-23] MEDS: levoTHYROXINE 88mcg tablet PO SCH (07:40)
[2017-05-23] MEDS: gabapentin 400mg capsule PO SCH ×3 (07:40→22:47)
[2017-05-23] MEDS: spironolactone 50 MG tablet PO SCH ×2 (07:40→20:00)
[2017-05-23] MEDS: fluticasone/vilanterol 200mcg/25mcg inhaler IH SCH (08:00)
[2017-05-23] MEDS: K and/or MAG REPLACEMENT MC SCH (08:00)
[2017-05-23] MEDS: HYDROcodone/acetaminophen 10/325mg tab PO PRN ×3 (09:03→22:47)
[2017-05-23] MEDS ORDERED: bacitracin 15gm ointment TP ONE (13:09)
[2017-05-23] MEDS ORDERED: ceFAZolin 1000mg inj ONE (13:09)
[2017-05-23] MEDS ORDERED: LIDOcaine 1% 30ml preserv. free vial ONE (13:09)
[2017-05-23] MEDS ORDERED: BUPIVAcaine/PF 2.5 mg/ml (0.25%) 30ml vial ONE (13:10)
[2017-05-23] MEDS ORDERED: GENTAMICIN TROUGH IV ONE (13:30)
[2017-05-23] MEDS ORDERED: fentaNYL/PF 50MCG/1 ML 2ML syringe ONE (13:39)
[2017-05-23] MEDS ORDERED: sevoflurane 250ml liquid IH ONE (13:40)
[2017-05-23] MEDS ORDERED: propofol inj 20 ML IV ONE (14:04)
[2017-05-23] MEDS ORDERED: LIDOcaine 1%/PF (10mg/ml) 5ml vial ONE (14:05)
[2017-05-23] MEDS ORDERED: succinylcholine 20mg/ml inj IV ONE (14:05)
[2017-05-23] MEDS ORDERED: ondansetron/PF 4mg/2ml inj ONE (14:06)
[2017-05-23] MEDS ORDERED: ringers solution, lacted 1,000 ML IV ONE (14:37)
[2017-05-23] MEDS ORDERED: labetalol 20mg/4ml (5mg/ml) syringe IV PRN (14:40)
[2017-05-23] MEDS ORDERED: hydrALAZINE 20mg/ml inj. IV PRN (14:40)
[2017-05-23] MEDS ORDERED: meperidine/PF 50mg/ml syringe IV ONE (14:40)
[2017-05-23] MEDS ORDERED: ondansetron/PF 4mg/2ml inj IV PRN (14:40)
[2017-05-23] MEDS ORDERED: MORPHINE 2MG in 2ml NS syringe IV PRN (14:40)
[2017-05-23] MEDS ORDERED: meperidine/PF 50mg/ml syringe IV PRN ×2 (14:40)
[2017-05-23] MEDS ORDERED: meperidine/PF 25mg/ml syringe ONE (14:54)
[2017-05-24] VITALS: BP 117/63
[2017-05-24 04:00] VITALS: BP 119/55
[2017-05-24 05:59] LABS: BASOPHILS % (AUTO) 0.4 % (0-1); EOSINOPHILS # (AUTO) 0.4 X10'3 (0-0.9); EOSINOPHILS % (AUTO) 4.7 % (0-6); HEMATOCRIT 34.4 % (35.0-45.0); HEMOGLOBIN 11.7 g/dl (12.0-16.0); LYMPHOCYTES % (AUTO) 22.2 % (21-51); MEAN CORPUSCULAR HGB CONC 33.9 % (33.0-36.5); MEAN CORPUSCULAR VOLUME 94.4 FL (78-98); MEAN PLATELET VOLUME 7.9 FL (7.4-10.4); MONOCYTES # (AUTO) 0.7 X10'3 (0-0.9); MONOCYTES % (AUTO) 7.4 % (2-12); NEUTROPHILS # (AUTO) 5.9 X10'3 (1.8-7.7); NEUTROPHILS % (AUTO) 65.3 % (42-75); PLATELET COUNT 291 X10'3 (140-440); RED BLOOD COUNT 3.65 X10'6 (4.20-5.60); RED CELL DISTRIBUTION WIDTH 15.5 % (11.5-14.5)
[2017-05-24 06:17] LABS: ALANINE AMINOTRANSFERASE 18 U/L (12-78); ALBUMIN 2.1 G/DL (3.4-5.0); ALBUMIN/GLOBULIN RATIO 0.6 (1.1-1.5); ALKALINE PHOSPHATASE 47 IU/L (46-116); ANION GAP 7 (8-16); ASPARTATE AMINO TRANSFERASE 13 U/L (10-37); BILIRUBIN,TOTAL 0.4 MG/DL (0.1-1.0); BLOOD UREA NITROGEN 8 MG/DL (7-18); BUN/CREATININE RATIO 8.5 (6.6-38.0); CALCIUM 9.3 MG/DL (8.5-10.1); CHLORIDE 104 MMOL/L (99-107); CREATININE 0.94 MG/DL (0.40-0.90); GLUCOSE 86 MG/DL (70-104); POTASSIUM 3.8 MMOL/L (3.5-5.1); SODIUM 142 MMOL/L (135-145); TOTAL CARBON DIOXIDE 31.4 MMOL/L (24-32); TOTAL PROTEIN 5.6 G/DL (6.4-8.2); eGFR 60 ML/MIN
[2017-05-24 07:30] VITALS: BP 105/63
[2017-05-24 08:00] VITALS: BP 136/89
[2017-05-24] MEDS: docusate sod 100mg capsule PO SCH ×2 (08:00→20:00)
[2017-05-24] MEDS: K and/or MAG REPLACEMENT MC SCH (08:00)
[2017-05-24] MEDS: heparin, porcine 5000 units/ml vial SQ SCH ×2 (09:54→16:27)
[2017-05-24] MEDS: gabapentin 400mg capsule PO SCH ×3 (09:55→20:47)
[2017-05-24] MEDS: lactobacillus rhamnosus 10,000 MMU CELLS/CAPSULE PO SCH ×2 (09:56→20:47)
[2017-05-24] MEDS: spironolactone 50 MG tablet PO SCH ×2 (09:56→20:49)
[2017-05-24] MEDS: pantoprazole 40mg Tablet.DR PO SCH (09:56)
[2017-05-24] MEDS: HYDROcodone/acetaminophen 10/325mg tab PO PRN ×3 (09:59→22:35)
[2017-05-24 11:00] VITALS: BP 105/63
[2017-05-24] MEDS: levoTHYROXINE 88mcg tablet PO SCH (11:02)
[2017-05-24] MEDS: fluticasone/vilanterol 200mcg/25mcg inhaler IH SCH (14:14)
[2017-05-24 20:00] VITALS: BP 126/66
[2017-05-25] VITALS: BP 138/72
[2017-05-25] MEDS: temazepam 15mg capsule PO PRN (00:19)
[2017-05-25] MEDS: heparin, porcine 5000 units/ml vial SQ SCH ×3 (00:21→15:58)
[2017-05-25 06:11] LABS: BASOPHILS # (AUTO) 0.1 X10'3 (0-0.2); BASOPHILS % (AUTO) 0.7 % (0-1); EOSINOPHILS # (AUTO) 0.3 X10'3 (0-0.9); EOSINOPHILS % (AUTO) 4.2 % (0-6); HEMATOCRIT 34.7 % (35.0-45.0); HEMOGLOBIN 11.8 g/dl (12.0-16.0); LYMPHOCYTES % (AUTO) 25.1 % (21-51); MEAN CORPUSCULAR VOLUME 94.1 FL (78-98); MEAN PLATELET VOLUME 7.9 FL (7.4-10.4); MONOCYTES # (AUTO) 0.7 X10'3 (0-0.9); MONOCYTES % (AUTO) 8.5 % (2-12); NEUTROPHILS # (AUTO) 4.8 X10'3 (1.8-7.7); NEUTROPHILS % (AUTO) 61.5 % (42-75); PLATELET COUNT 282 X10'3 (140-440); RED BLOOD COUNT 3.69 X10'6 (4.20-5.60); RED CELL DISTRIBUTION WIDTH 15.3 % (11.5-14.5); WHITE BLOOD COUNT 7.8 X10'3 (4.5-11.0)
[2017-05-25 06:37] LABS: ALANINE AMINOTRANSFERASE 19 U/L (12-78); ALBUMIN 2.1 G/DL (3.4-5.0); ALBUMIN/GLOBULIN RATIO 0.5 (1.1-1.5); ALKALINE PHOSPHATASE 46 IU/L (46-116); ANION GAP 5 (8-16); ASPARTATE AMINO TRANSFERASE 16 U/L (10-37); BILIRUBIN,TOTAL 0.4 MG/DL (0.1-1.0); BLOOD UREA NITROGEN 16 MG/DL (7-18); BUN/CREATININE RATIO 12.2 (6.6-38.0); CALCIUM 9.4 MG/DL (8.5-10.1); CHLORIDE 103 MMOL/L (99-107); CREATININE 1.31 MG/DL (0.40-0.90); GLUCOSE 109 MG/DL (70-104); POTASSIUM 3.9 MMOL/L (3.5-5.1); SODIUM 141 MMOL/L (135-145); TOTAL CARBON DIOXIDE 33.4 MMOL/L (24-32); TOTAL PROTEIN 6.1 G/DL (6.4-8.2); eGFR 41 ML/MIN
[2017-05-25 07:30] VITALS: BP 134/71
[2017-05-25] MEDS: K and/or MAG REPLACEMENT MC SCH (08:00)
[2017-05-25] MEDS: lactobacillus rhamnosus 10,000 MMU CELLS/CAPSULE PO SCH ×2 (09:07→20:49)
[2017-05-25] MEDS: docusate sod 100mg capsule PO SCH ×2 (09:07→20:49)
[2017-05-25] MEDS: pantoprazole 40mg Tablet.DR PO SCH (09:07)
[2017-05-25] MEDS: gabapentin 400mg capsule PO SCH ×3 (09:07→20:49)
[2017-05-25] MEDS: spironolactone 50 MG tablet PO SCH ×2 (09:07→20:49)
[2017-05-25] MEDS: levoTHYROXINE 88mcg tablet PO SCH (10:19)
[2017-05-25] MEDS: HYDROcodone/acetaminophen 10/325mg tab PO PRN ×2 (10:48→20:50)
[2017-05-25] MEDS: fluticasone/vilanterol 200mcg/25mcg inhaler IH SCH (11:50)
[2017-05-25 12:13] VITALS: BP 110/94
[2017-05-25 20:00] VITALS: BP 112/69
[2017-05-26] VITALS: BP 118/62
[2017-05-26] MEDS: heparin, porcine 5000 units/ml vial SQ SCH ×4 (00:23→23:39)
[2017-05-26] MEDS: temazepam 15mg capsule PO PRN (01:33)
[2017-05-26 07:00] VITALS: BP 105/62
[2017-05-26] MEDS: fluticasone/vilanterol 200mcg/25mcg inhaler IH SCH (07:14)
[2017-05-26] MEDS: K and/or MAG REPLACEMENT MC SCH (08:00)
[2017-05-26] MEDS: gabapentin 400mg capsule PO SCH ×3 (08:41→20:33)
[2017-05-26] MEDS: lactobacillus rhamnosus 10,000 MMU CELLS/CAPSULE PO SCH ×2 (08:41→20:33)
[2017-05-26] MEDS: levoTHYROXINE 88mcg tablet PO SCH (08:41)
[2017-05-26] MEDS: spironolactone 50 MG tablet PO SCH ×2 (08:41→20:33)
[2017-05-26] MEDS: pantoprazole 40mg Tablet.DR PO SCH (08:41)
[2017-05-26] MEDS: docusate sod 100mg capsule PO SCH ×2 (08:42→20:33)
[2017-05-26] MEDS: HYDROcodone/acetaminophen 10/325mg tab PO PRN ×2 (16:56→23:38)
[2017-05-26 20:00] VITALS: BP 129/72
[2017-05-27] VITALS: BP 118/65
[2017-05-27 08:00] VITALS: BP 130/62
[2017-05-27] MEDS: K and/or MAG REPLACEMENT MC SCH (08:00)
[2017-05-27] MEDS: fluticasone/vilanterol 200mcg/25mcg inhaler IH SCH (08:00)
[2017-05-27] MEDS: pantoprazole 40mg Tablet.DR PO SCH (08:14)
[2017-05-27] MEDS: spironolactone 50 MG tablet PO SCH ×2 (08:14→20:43)
[2017-05-27] MEDS: lactobacillus rhamnosus 10,000 MMU CELLS/CAPSULE PO SCH ×2 (08:14→20:43)
[2017-05-27] MEDS: gabapentin 400mg capsule PO SCH ×3 (08:14→20:43)
[2017-05-27] MEDS: docusate sod 100mg capsule PO SCH ×2 (08:15→20:43)
[2017-05-27] MEDS: heparin, porcine 5000 units/ml vial SQ SCH ×3 (08:16→23:58)
[2017-05-27] MEDS: levoTHYROXINE 88mcg tablet PO SCH (10:52)
[2017-05-27 11:00] VITALS: BP 124/68
[2017-05-27] MEDS: HYDROcodone/acetaminophen 10/325mg tab PO PRN ×2 (13:32→20:45)
[2017-05-27 19:30] VITALS: BP 140/66
[2017-05-27] MEDS: temazepam 15mg capsule PO PRN (23:58)
[2017-05-28] VITALS: BP 137/63
[2017-05-28 07:52] VITALS: BP_SYST 100; BP_SYST 112; BP_DIAS 49; BP_DIAS 52
[2017-05-28] MEDS: K and/or MAG REPLACEMENT MC SCH (08:00)
[2017-05-28] MEDS: fluticasone/vilanterol 200mcg/25mcg inhaler IH SCH (08:00)
[2017-05-28] MEDS: levoTHYROXINE 88mcg tablet PO SCH (09:13)
[2017-05-28] MEDS: lactobacillus rhamnosus 10,000 MMU CELLS/CAPSULE PO SCH ×2 (09:14→20:50)
[2017-05-28] MEDS: docusate sod 100mg capsule PO SCH ×2 (09:17→20:50)
[2017-05-28] MEDS: gabapentin 400mg capsule PO SCH ×3 (09:17→20:50)
[2017-05-28] MEDS: spironolactone 50 MG tablet PO SCH ×2 (09:18→20:50)
[2017-05-28] MEDS: pantoprazole 40mg Tablet.DR PO SCH (09:18)
[2017-05-28] MEDS: heparin, porcine 5000 units/ml vial SQ SCH ×2 (09:21→15:14)
[2017-05-28] MEDS: HYDROcodone/acetaminophen 10/325mg tab PO PRN ×2 (15:10→20:51)
[2017-05-28 20:00] VITALS: BP 119/62
[2017-05-29] VITALS: BP 119/62
[2017-05-29] MEDS: heparin, porcine 5000 units/ml vial SQ SCH ×2 (00:40→08:00)
[2017-05-29] MEDS: temazepam 15mg capsule PO PRN (01:29)
[2017-05-29] MEDS: lactobacillus rhamnosus 10,000 MMU CELLS/CAPSULE PO SCH (08:00)
[2017-05-29] MEDS: docusate sod 100mg capsule PO SCH (08:00)
[2017-05-29] MEDS: gabapentin 400mg capsule PO SCH ×2 (08:00→13:06)
[2017-05-29] MEDS: K and/or MAG REPLACEMENT MC SCH (08:00)
[2017-05-29] MEDS: spironolactone 50 MG tablet PO SCH (08:00)
[2017-05-29] MEDS: levoTHYROXINE 88mcg tablet PO SCH (08:00)
[2017-05-29] MEDS: fluticasone/vilanterol 200mcg/25mcg inhaler IH SCH (08:00)
[2017-05-29] MEDS: pantoprazole 40mg Tablet.DR PO SCH (08:00)
[2017-05-29 09:06] VITALS: BP 116/51
[2017-05-29] MEDS: HYDROcodone/acetaminophen 10/325mg tab PO PRN (09:24)
[2017-05-29 12:03] VITALS: BP 113/65
== END 2017-05-29 16:24 | DRG 570 ==
LOC: ER 15:44 → ED HOLD 18:35 → EDBEDREQ 20:06 → SUR 3N 20:50 → PACU 05-23 13:12 → SUR 3N 05-23 16:34
PROVIDERS: ADMIT Family Medicine; ATTEND Internal Medicine
PROC: 0JBP0ZZ Excision of Left Lower Leg Subcutaneous Tissue and Fascia, Open Approach (ICD-10-PCS; principal; 2017-05-23 13:40)
DX: L03.116 Cellulitis of left lower limb (principal); E43 Unspecified severe protein-calorie malnutrition; J44.1 Chronic obstructive pulmonary disease with (acute) exacerbation; Z68.43 Body mass index [BMI] 50.0-59.9, adult; L97.929 Non-pressure chronic ulcer of unspecified part of left lower leg with unspecified severity; E66.01 Morbid (severe) obesity due to excess calories; G62.9 Polyneuropathy, unspecified; L03.115 Cellulitis of right lower limb; I87.2 Venous insufficiency (chronic) (peripheral); B96.5 Pseudomonas (aeruginosa) (mallei) (pseudomallei) as the cause of diseases classified elsewhere; E03.9 Hypothyroidism, unspecified; S81.802A Unspecified open wound, left lower leg, initial encounter; I89.0 Lymphedema, not elsewhere classified; N19 Unspecified kidney failure; D64.9 Anemia, unspecified; L30.8 Other specified dermatitis; G89.29 Other chronic pain; I10 Essential (primary) hypertension; K21.9 Gastro-esophageal reflux disease without esophagitis; T36.0X5A Adverse effect of penicillins, initial encounter; F17.210 Nicotine dependence, cigarettes, uncomplicated; Z90.49 Acquired absence of other specified parts of digestive tract; Z88.1 Allergy status to other antibiotic agents; Z79.899 Other long term (current) drug therapy; Y92.89 Other specified places as the place of occurrence of the external cause
CPT/HCPCS: 36415; 71045; 80053; 80170; 83605; 83735; 84145; 85025; 87040; 87070; 87075; 87077; 87102; 87186; 93005; 94760; 99285; A4649; A6196; A6213; A6253; A6446; A6449; A7000; J0330; J0690; J1200; J1580; J1644; J2001; J2175; J2185; J2270; J2405; J2543; J2704; J2930; J3010; J3480; J3490; J7030; J7120; Q0163

== ENCOUNTER 2018-10-28 20:03 | Inpatient (IN) | payer MEDICARE, MEDICAID ==
[~2018-10-28] VITALS: Ht 157.5 cm; Wt 134.1 kg
[~2018-10-28 20:03] MED LIST changes: +CLIN-5 PO; +FUROSEMIDE 40 MG TABLET PO; +GABA800T11 PO; -GABA800T2 PO; -HYDR-3965 PO; +HYDR-3972 PO; +HYDR-4384 PO; +HYDROCODONE-ACETAMIN 7.5-325; +LEVO175T2 PO; +LEVOTHYROXINE 175 MCG; +LIDOCAINE HCL 2%; +OMEP40CA13 PO; -OMEP40CA37 PO; +OMEPRAZOLE 20 MG; +POTASSIUM CITRATE 10 MEQ; +POTASSIUM CITRATE 10 MEQ PO; -SPIR50TA3 PO; +SPIR50TA5 PO; +SPIRONOLACTONE 50 MG; +SYMBICORT 160-4.5 MCG INHALER; -SYN0.088T PO; +TRAZODONE HCL 50 MG
[2018-10-28] MEDS ORDERED: normal saline 1000ML IV soln IVB ONE (20:30)
[2018-10-28 20:56] LABS: BASOPHILS # (AUTO) 0.1 X10'3 (0-0.2); EOSINOPHILS # (AUTO) 0.1 X10'3 (0-0.9); LYMPHOCYTES # (AUTO) 1.7 X10'3 (1.1-4.8); NEUTROPHILS # (AUTO) 6.8 X10'3 (1.8-7.7)
[2018-10-28 20:58] LABS: BASOPHILS % (AUTO) 0.7 % (0-1); HEMATOCRIT 40.5 % (35.0-45.0); HEMOGLOBIN 13.9 g/dl (12.0-16.0); LYMPHOCYTES % (AUTO) 17.6 % (21-51); MEAN CORPUSCULAR HEMOGLOBIN 31.9 PG (27.0-31.0); MEAN CORPUSCULAR HGB CONC 34.2 g/dL (33.0-36.5); MEAN CORPUSCULAR VOLUME 93.3 FL (78-98); MEAN PLATELET VOLUME 8.6 FL (7.4-10.4); MONOCYTES # (AUTO) 0.9 X10'3 (0-0.9); NEUTROPHILS % (AUTO) 71.7 % (42-75); RED BLOOD COUNT 4.34 X10'6 (4.20-5.60); RED CELL DISTRIBUTION WIDTH 14.3 % (11.5-14.5); WHITE BLOOD COUNT 9.5 X10'3 (4.5-11.0)
[2018-10-28 21:14] LABS: CLARITY,URINE CLEAR (Clear); COLOR,URINE YELLOW (Yellow); GLUCOSE, URINE NEGATIVE (Neg); KETONES,URINE TRACE mg/dl (Neg); LEUKOCYTE ESTERASE ,URINE NEGATIVE (Neg); NITRITES, URINE NEGATIVE (Neg); OCCULT BLOOD,URINE NEGATIVE (Neg); PROTEIN,URINE TRACE mg/dl (Neg)
[2018-10-28 21:20] LABS: PLATELET COUNT 371 X10'3 (140-440)
[2018-10-28 21:24] LABS: UA COLLECTION TYPE STRAIGHT CATH
[2018-10-28 21:30] LABS: BACTERIA,URINE FEW /HPF (Neg); MUCUS STRANDS MODERATE /LPF (Neg); RBC,URINE NONE SEEN /HPF (0-2); SQUAMOUS EPITHELIAL CELL,UR MODERATE /LPF (FEW); WBC,URINE 0-4 /HPF (0-4)
[2018-10-28 21:41] LABS: ALANINE AMINOTRANSFERASE 19 U/L (12-78); ALBUMIN 2.2 G/DL (3.4-5.0); ALBUMIN/GLOBULIN RATIO 0.4 (1.1-1.5); ALKALINE PHOSPHATASE 87 IU/L (46-116); ANION GAP 6 (8-16); ASPARTATE AMINO TRANSFERASE 15 U/L (10-37); BILIRUBIN,TOTAL 0.5 MG/DL (0.1-1.0); BLOOD UREA NITROGEN 16 MG/DL (7-18); BUN/CREATININE RATIO 13.4 (6.6-38.0); CALCIUM 8.9 MG/DL (8.5-10.1); CHLORIDE 99 MMOL/L (99-107); CREATININE 1.19 MG/DL (0.40-0.90); GLUCOSE 158 MG/DL (70-104); POTASSIUM 3.9 MMOL/L (3.5-5.1); SODIUM 139 MMOL/L (135-145); TOTAL CARBON DIOXIDE 33.8 MMOL/L (24-32); TOTAL PROTEIN 7.1 G/DL (6.4-8.2); eGFR 45 ML/MIN
[2018-10-28] MEDS ORDERED: vancomycin/NS 1 GM ADD-VANTAGE 250 ML IV ONE (22:10)
--- NOTE | 2018-10-28 22:40 | NUR ---
Attempted to roll patient over to put dry flow underneath; as we turned her to her right side patient became cyanotic, saturation and heart rate dropped below 60. Patient had loss of bladder control. SANTOSH Parry and MD Tai rushed to bedside. Ordered ABGs, EKG, Labs and O2 via nasal annula. Patient was unresponsive for 20 seconds, but pulse present. Then, patient's heartrate and saturation came back up. Vital signs: Temp: 98.4 HR: 80 RR: 18, SpO2: 97% RA, BP: 140/95 Patient completely alert and oriented x4, denies any pain or disomfort at this moment. All linens changed, warm blanket given. Patient resting comfortably.
[2018-10-28] MEDS ORDERED: morphine 2 MG/ML inj. syringe IV PRN (22:55)
[2018-10-28] MEDS ORDERED: acetaminophen 325mg tablet PO PRN (22:55)
[2018-10-28] MEDS ORDERED: ondansetron/PF 4mg/2ml inj IV PRN (22:55)
[2018-10-28] MEDS ORDERED: magnesium hydroxide 30ml (MOM) UD suspension PO PRN (22:55)
[2018-10-28] MEDS ORDERED: potassium CL 10mEq/100ml bag 100 ML IV PRN ×2 (22:55)
[2018-10-28] MEDS ORDERED: HYDROcodone/acetaminophen 5mg/325mg tablet PO PRN (22:55)
[2018-10-28] MEDS ORDERED: magnesium 4gm in 100ml NS 100 ML IV PRN (22:55)
[2018-10-28] MEDS ORDERED: potassium Cl 20 mEq SR tablet PO PRN (22:55)
[2018-10-28] MEDS ORDERED: mag hydrox/Alum hydrox/simeth 30ml oral suspension PO PRN (22:55)
[2018-10-28] MEDS ORDERED: magnesium 2GM in 50ml NS 50 ML IV PRN (22:55)
[2018-10-28] MEDS ORDERED: magnesium Cl slow-release 64mg tablet PO PRN (22:55)
[2018-10-28 23:01] LABS: ABG HCO3 28.2 mmol/L (22.0-26.0); ABG OXYGEN SATURATION 96.4 % (95-98); ABG PCO2 (T) 45.7 mmHg (35.0-45.0); ABG PH (T) 7.409 (7.350-7.450); ABG PO2 (T) 92.2 mmHg (83-108); ALLEN'S TEST Positive; FLOW 3 L/min; FMetHb 0.2 % (0.3-1.12); FO2Hb 95.2 % (94-100); PATIENT TEMPERATURE 37.2; TOTAL HEMOGLOBIN 13.8 G/dl (12.0-16.0)
[2018-10-28] MEDS ORDERED: HYDR-4383 PO (23:08)
[2018-10-28 23:13] LABS: TROPONIN I < 0.04 NG/ML (0.0-0.05)
[2018-10-28] MEDS ORDERED: LACT1CAP65 PO (23:15)
[2018-10-28] MEDS ORDERED: DOXY-327 PO (23:19)
[2018-10-28] MEDS ORDERED: LEVO500T89 PO (23:21)
[2018-10-28] MEDS ORDERED: OMEP-50 PO (23:23)
[2018-10-28] MEDS ORDERED: NABU500T2 PO (23:24)
[2018-10-28] MEDS ORDERED: morphine 4 MG/ML inj SYRINge IV ONE (23:25)
[2018-10-28] MEDS ORDERED: MAGN250T2 PO (23:32)
[2018-10-28] MEDS ORDERED: ASCO500C15 PO (23:34)
[2018-10-28] MEDS ORDERED: PNV1TABL75 PO (23:35)
[2018-10-29] VITALS (7 sets, daily range): BP systolic 79–109; BP diastolic 37–61
--- NOTE | 2018-10-29 00:20 | NUR ---
Patient denies any pain of discomfort at this time. Warm blanket given.
--- NOTE | 2018-10-29 00:59 | NUR ---
Report given to LINA Felipe.
--- NOTE | 2018-10-29 01:03 | NUR ---
Patient in room ORTHO 4007. I have received report from Faiza Musa working in Er and had the opportunity to ask questions and will assume patient care upon arrival to the floor. Addendum: 10/29/18 at 0104 by Destinee Rivera RN Amended: Links added.
--- NOTE | 2018-10-29 01:10 | NUR ---
pt arrived to the floor x4 to transfer with slide board into bed with trapeze unit [place] bed, then positioned to comfort and then dressings removed and pictures taken of left heel left calf and then right calf. dart questions asked. then wounds bilat calfs packed with saline soaked gauze, zeroform to scaley part of tops of legs abd to back of calf's then wrapped in kurlix wrap bilat. pt stated cultures done by Dr Painting prior to wound debridement in his office and coming to Er for antibiotics and admit. MRSA swab done on arrival to the unit.
--- NOTE | 2018-10-29 02:00 | NUR ---
attempt to get 3hr troponin draw x2 sticks without success. notified the lab. they were unable to get it. so scheduled to do 6hr at 0437 am.
--- NOTE | 2018-10-29 03:00 | NUR ---
pt c/o bilat leg pain 11/12 and medicated with 2mg of morphine for this.
[2018-10-29] MEDS: morphine 2 MG/ML inj. syringe IV PRN (03:06)
[2018-10-29 06:03] LABS: ALBUMIN 1.9 G/DL (3.4-5.0); ANION GAP 9 (8-16); BLOOD UREA NITROGEN 15 MG/DL (7-18); BUN/CREATININE RATIO 15.5 (6.6-38.0); CALCIUM 8.6 MG/DL (8.5-10.1); CHLORIDE 99 MMOL/L (99-107); CREATININE 0.97 MG/DL (0.40-0.90); GLUCOSE 146 MG/DL (70-104); MAGNESIUM 1.5 MG/DL (1.5-2.4); SODIUM 134 MMOL/L (135-145); TOTAL CARBON DIOXIDE 25.9 MMOL/L (24-32); eGFR 57 ML/MIN
[2018-10-29 06:05] LABS: POTASSIUM 3.9 MMOL/L (3.5-5.1)
--- NOTE | 2018-10-29 06:11 | NUR ---
received report from lesvia sigala
--- NOTE | 2018-10-29 06:40 | NUR ---
Problems reprioritized. Patient report given, questions answered & plan of care reviewed with An Musa. Addendum: 10/29/18 at 0641 by Desitnee Rivera RN Amended: Links added.
[2018-10-29] MEDS: pantoprazole 40mg Tablet.DR PO SCH ×2 (07:00→17:15)
[2018-10-29] MEDS: NABUMETONE 500MG PO SCH (08:00)
[2018-10-29] MEDS ORDERED: lactobacillus rhamnosus 10,000 MMU CELLS/CAPSULE PO SCH (08:00)
[2018-10-29] MEDS: K and/or MAG REPLACEMENT MC SCH (08:00)
[2018-10-29] MEDS: gabapentin 400mg capsule PO SCH ×2 (08:17→12:58)
[2018-10-29] MEDS: lactobacillus rhamnosus 10,000 MMU CELLS/CAPSULE PO SCH ×2 (08:17→20:37)
[2018-10-29] MEDS: potassium chloride 10mEq ER tablet PO SCH (08:17)
[2018-10-29] MEDS: furosemide 40mg tablet PO SCH (08:17)
[2018-10-29] MEDS: ascorbic acid 500mg tablet PO SCH (08:18)
[2018-10-29] MEDS: multivitamins, therapeutics tablet PO SCH (08:18)
[2018-10-29] MEDS: spironolactone 25 MG tablet PO SCH (08:18)
[2018-10-29] MEDS: levoTHYROXINE 175mcg tablet PO SCH (08:18)
[2018-10-29] MEDS: enoxaparin 40mg/0.4ml syringe SQ SCH (08:19)
[2018-10-29 11:06] LABS: BASOPHILS % (AUTO) 0.1 % (0-1); EOSINOPHILS # (AUTO) 0.1 X10'3 (0-0.9); EOSINOPHILS % (AUTO) 0.5 % (0-6); HEMATOCRIT 41.1 % (35.0-45.0); HEMOGLOBIN 13.7 g/dl (12.0-16.0); LYMPHOCYTES # (AUTO) 0.1 X10'3 (1.1-4.8); LYMPHOCYTES % (AUTO) 0.7 % (21-51); MEAN CORPUSCULAR HEMOGLOBIN 31.2 PG (27.0-31.0); MEAN CORPUSCULAR HGB CONC 33.5 g/dL (33.0-36.5); MEAN CORPUSCULAR VOLUME 93.4 FL (78-98); MEAN PLATELET VOLUME 8.1 FL (7.4-10.4); MONOCYTES # (AUTO) 0.1 X10'3 (0-0.9); MONOCYTES % (AUTO) 0.6 % (2-12); NEUTROPHILS # (AUTO) 13.9 X10'3 (1.8-7.7); NEUTROPHILS % (AUTO) 98.1 % (42-75); PLATELET COUNT 280 X10'3 (140-440); RED CELL DISTRIBUTION WIDTH 14.3 % (11.5-14.5); WHITE BLOOD COUNT 14.1 X10'3 (4.5-11.0)
--- NOTE | 2018-10-29 11:26 | NUR ---
Michelle PATEL regarding critical lab result PAGER ID: [phone] MESSAGE: [id number] Kallie Mattson Critical Trop 0.73. Rayna Mullen/Neuro [id number]
--- NOTE | 2018-10-29 12:42 | NUR ---
Malnutrition consult: Pt admit for wound check hx chronic lymphedema, morbid obesity, and non-healing bilateral calf PU's w/ multiple prior debridements at wound care per MD note. RD provided pt w/ written/verbal high protein ed w/ RD contact information; pt agrees to double meats TIDWM and dislikes seafood. Pt would also like ensure high protein TIDWM; has premier protein from home but only four bottles; dietary and MD notified. Pending MD verification prior to sending on meals which pt is aware of. PO 50% avg first heart healthy meal. Receiving MVI, vitamin C for wound healing needs. Given no visible signs of muscle/fat wasting and good appetite pt does not meet malnutrition criteria at thist time. Will continue to monitor. Rec: 1. continue heart healthy diet; double meats TIDWM 2. ensure high protein TIDWM; pend MD verification 3. MVI for wound healing 4. wt per rx Addendum: 10/29/18 at [address] Amended: Links added.
[2018-10-29] MEDS ORDERED: lactose-reduced food (Ensure High Protein) 237ml bottle PO SCH (13:00)
[2018-10-29] MEDS: acetaminophen 325mg tablet PO PRN (13:36)
[2018-10-29] MEDS ORDERED: regadenoson 0.4mg/5ml syringe IV PRN (15:25)
[2018-10-29] MEDS ORDERED: aminophylline 250mg/10ml inj. IV PRN (15:25)
[2018-10-29] MEDS ORDERED: nitroGLYCERIN 0.4mg SUBLingual tab SL PRN (15:25)
[2018-10-29] MEDS ORDERED: metoprolol tartrate 1mg/ml inj IV PRN (15:25)
--- NOTE | 2018-10-29 18:17 | NUR ---
gave report to lesvia vang
[2018-10-29] MEDS ORDERED: normal saline 500ml IV soln 500 ML IV ONE (19:30)
[2018-10-29 19:34] LABS: CHOL/HDL RATIO 4.7 (0.00-4.99); CHOLESTEROL 93 MG/DL (0-200); HDL CHOLESTEROL 20 MG/DL (35-60); LDL CHOLESTEROL 66 MG/DL (50-100); TRIGLYCERIDES 68 MG/DL (20-135)
[2018-10-29] MEDS: gabapentin 300mg capsule PO SCH (20:38)
[2018-10-29] MEDS ORDERED: furosemide 40mg tablet PO SCH (21:00)
--- NOTE | 2018-10-29 21:18 | NUR ---
Michelle PATEL to read STAT EKG and advise of BP 79/37. EKG read by Debra. Similar to previous. Ordered 500 mL bolus. Patient not tachycardic. Advised low laying position.
[2018-10-30] MEDS: acetaminophen 325mg tablet PO PRN ×4 (00:21→19:40)
[2018-10-30 06:00] VITALS: BP 91/43
--- NOTE | 2018-10-30 06:08 | NUR ---
Problems reprioritized. Patient report given, questions answered & plan of care reviewed with LINA Nolan.
--- NOTE | 2018-10-30 06:11 | NUR ---
received report from lesvia vang
[2018-10-30] MEDS: K and/or MAG REPLACEMENT MC SCH (07:40)
[2018-10-30] MEDS: furosemide 40mg tablet PO SCH (07:42)
[2018-10-30] MEDS: spironolactone 25 MG tablet PO SCH (07:43)
[2018-10-30] MEDS: enoxaparin 40mg/0.4ml syringe SQ SCH ×3 (07:43→08:11)
[2018-10-30] MEDS: NABUMETONE 500MG PO SCH (07:43)
[2018-10-30] MEDS: lactobacillus rhamnosus 10,000 MMU CELLS/CAPSULE PO SCH ×2 (07:54→19:40)
[2018-10-30] MEDS: gabapentin 300mg capsule PO SCH ×2 (07:54→19:40)
[2018-10-30] MEDS: levoTHYROXINE 175mcg tablet PO SCH (07:54)
[2018-10-30] MEDS: multivitamins, therapeutics tablet PO SCH (07:54)
[2018-10-30] MEDS: ascorbic acid 500mg tablet PO SCH (07:54)
[2018-10-30] MEDS: potassium chloride 10mEq ER tablet PO SCH (08:07)
[2018-10-30] MEDS: pantoprazole 40mg Tablet.DR PO SCH ×2 (08:07→16:24)
[2018-10-30 08:30] LABS: BASOPHILS % (AUTO) 0.1 % (0-1); EOSINOPHILS # (AUTO) 0.3 X10'3 (0-0.9); HEMATOCRIT 39.3 % (35.0-45.0); LYMPHOCYTES # (AUTO) 0.2 X10'3 (1.1-4.8); LYMPHOCYTES % (AUTO) 1.3 % (21-51); MEAN CORPUSCULAR HEMOGLOBIN 30.3 PG (27.0-31.0); MEAN CORPUSCULAR HGB CONC 33.1 g/dL (33.0-36.5); MEAN CORPUSCULAR VOLUME 91.7 FL (78-98); MONOCYTES # (AUTO) 0.3 X10'3 (0-0.9); MONOCYTES % (AUTO) 1.8 % (2-12); NEUTROPHILS # (AUTO) 14.3 X10'3 (1.8-7.7); NEUTROPHILS % (AUTO) 94.8 % (42-75); PLATELET COUNT 231 X10'3 (140-440); RED BLOOD COUNT 4.29 X10'6 (4.20-5.60); RED CELL DISTRIBUTION WIDTH 14.1 % (11.5-14.5); WHITE BLOOD COUNT 15.1 X10'3 (4.5-11.0)
--- NOTE | 2018-10-30 08:30 | NUR ---
Upon assessment of patients chart and current vitals, the patients current blood pressure is too low to proceed with Cardiac Stress Test. Lexiscan is contraindicated and test will be put on HOLD. Primary Nurse to contact Dr. Alvarez regarding these findings.
[2018-10-30 08:51] LABS: ALBUMIN 1.5 G/DL (3.4-5.0); ANION GAP 4 (8-16); BLOOD UREA NITROGEN 14 MG/DL (7-18); BUN/CREATININE RATIO 15.6 (6.6-38.0); CALCIUM 8.4 MG/DL (8.5-10.1); CHLORIDE 101 MMOL/L (99-107); GLUCOSE 98 MG/DL (70-104); MAGNESIUM 1.6 MG/DL (1.5-2.4); POTASSIUM 3.3 MMOL/L (3.5-5.1); SODIUM 136 MMOL/L (135-145); TOTAL CARBON DIOXIDE 30.6 MMOL/L (24-32); TROPONIN I 0.16 NG/ML (0.0-0.05); eGFR 62 ML/MIN
[2018-10-30] MEDS: docusate sod 100mg capsule PO SCH ×2 (09:37→19:41)
[2018-10-30 10:00] VITALS: BP 97/43
[2018-10-30] MEDS: potassium Cl 20 mEq SR tablet PO PRN ×3 (13:40→20:26)
--- NOTE | 2018-10-30 14:03 | NUR ---
COMPRESSION WRAP EDUCATION PROVIDED BY WOUND CARE 1. Patient instructed to elevate legs at least 30 minutes 3 times a day or 10 minutes every 4 hours. 2. Patient Instructed to check for the following signs: * Toes become purplish or blue in color. * Toes become cool to the touch, numb or tingly. * Dressing becomes loose, wrinkled or falls down. * If any pain or discomfort occurs under their dressing. * If any of these signs occur, use a pair of scissors and carefully cut off the dressing. "Call your wound care center or primary doctor immediately to make an appointment. 3. Patient instructed that the wrap needs to be kept dry. They may bath at a sink or shower with a plastic bag taped over the wrap. If they shower, be sure to have another person available for assistance or placing towels on the floor of the shower or tub to eliminate the slick surface can reduce the risk of falls. 4. If any of these occur while patient is still in the hospital, call the nurse immediately. Addendum: 10/30/18 at 1403 by Jomar Wahl RN Amended: Links added.
[2018-10-30] MEDS ORDERED: Dakins solution (1/4 strength) 473ml solution TP SCH (14:05)
[2018-10-30 18:00] VITALS: BP 114/84
--- NOTE | 2018-10-30 18:16 | NUR ---
gave report to lesvia jeffers
[2018-10-30] MEDS ORDERED: VANCOMYCIN LEVEL IV ONE (19:30)
[2018-10-30] MEDS: VANCOmycin 1250MG/NS 250ml Bag 250 ML IV SCH (21:18)
[2018-10-30 22:00] VITALS: BP 117/54
[2018-10-31] MEDS: acetaminophen 325mg tablet PO PRN ×2 (01:37→08:07)
[2018-10-31 05:56] LABS: BASOPHILS % (AUTO) 0.1 % (0-1); EOSINOPHILS # (AUTO) 0.2 X10'3 (0-0.9); EOSINOPHILS % (AUTO) 2.5 % (0-6); HEMATOCRIT 35.3 % (35.0-45.0); HEMOGLOBIN 11.7 g/dl (12.0-16.0); LYMPHOCYTES # (AUTO) 0.3 X10'3 (1.1-4.8); LYMPHOCYTES % (AUTO) 3.1 % (21-51); MEAN CORPUSCULAR HGB CONC 33.3 g/dL (33.0-36.5); MEAN CORPUSCULAR VOLUME 93.2 FL (78-98); MEAN PLATELET VOLUME 8.6 FL (7.4-10.4); MONOCYTES # (AUTO) 0.2 X10'3 (0-0.9); MONOCYTES % (AUTO) 2.3 % (2-12); NEUTROPHILS # (AUTO) 8.7 X10'3 (1.8-7.7); PLATELET COUNT 219 X10'3 (140-440); RED BLOOD COUNT 3.79 X10'6 (4.20-5.60); RED CELL DISTRIBUTION WIDTH 14.4 % (11.5-14.5); WHITE BLOOD COUNT 9.4 X10'3 (4.5-11.0)
[2018-10-31 06:02] LABS: ALBUMIN 1.5 G/DL (3.4-5.0); ANION GAP 6 (8-16); BLOOD UREA NITROGEN 13 MG/DL (7-18); BUN/CREATININE RATIO 18.3 (6.6-38.0); CALCIUM 9.2 MG/DL (8.5-10.1); CHLORIDE 103 MMOL/L (99-107); CREATININE 0.71 MG/DL (0.40-0.90); GLUCOSE 93 MG/DL (70-104); MAGNESIUM 1.8 MG/DL (1.5-2.4); POTASSIUM 3.4 MMOL/L (3.5-5.1); SODIUM 139 MMOL/L (135-145); TOTAL CARBON DIOXIDE 30.2 MMOL/L (24-32); eGFR 82 ML/MIN
[2018-10-31 06:10] VITALS: BP 121/48
--- NOTE | 2018-10-31 07:02 | NUR ---
I have received patient report from Beverly MILLS
[2018-10-31] MEDS: K and/or MAG REPLACEMENT MC SCH (08:00)
[2018-10-31] MEDS: Dakins solution (1/4 strength) 473ml solution TP SCH (08:00)
[2018-10-31] MEDS: gabapentin 300mg capsule PO SCH ×2 (08:05→19:27)
[2018-10-31] MEDS: pantoprazole 40mg Tablet.DR PO SCH ×2 (08:05→17:11)
[2018-10-31] MEDS: potassium chloride 10mEq ER tablet PO SCH (08:06)
[2018-10-31] MEDS: furosemide 40mg tablet PO SCH (08:06)
[2018-10-31] MEDS: potassium Cl 20 mEq SR tablet PO PRN ×3 (08:06→19:28)
[2018-10-31] MEDS: docusate sod 100mg capsule PO SCH ×2 (08:06→19:27)
[2018-10-31] MEDS: lactobacillus rhamnosus 10,000 MMU CELLS/CAPSULE PO SCH ×2 (08:06→19:27)
[2018-10-31] MEDS: spironolactone 25 MG tablet PO SCH (08:07)
[2018-10-31] MEDS: multivitamins, therapeutics tablet PO SCH (08:08)
[2018-10-31] MEDS: enoxaparin 40mg/0.4ml syringe SQ SCH (08:08)
[2018-10-31] MEDS: VANCOmycin 1250MG/NS 250ml Bag 250 ML IV SCH ×2 (09:48→21:21)
[2018-10-31 10:00] VITALS: BP 129/47
[2018-10-31] MEDS: levoTHYROXINE 175mcg tablet PO SCH (10:23)
[2018-10-31] MEDS: NABUMETONE 500MG PO SCH (13:44)
[2018-10-31] MEDS: ascorbic acid 500mg tablet PO SCH (13:44)
[2018-10-31] MEDS: morphine 2 MG/ML inj. syringe IV PRN (13:45)
[2018-10-31] MEDS: HYDROcodone/acetaminophen 10/325mg tab PO PRN ×2 (17:11→21:21)
--- NOTE | 2018-10-31 18:10 | NUR ---
Patient in room ORTHO 4007. I have received report from LINA Juarez and had the opportunity to ask questions and assume patient care.
--- NOTE | 2018-10-31 18:21 | NUR ---
Patient report given to Tanya MILLS
[2018-10-31 18:41] VITALS: BP 133/58
[2018-10-31 22:00] VITALS: BP 103/49
[2018-11-01] MEDS: HYDROcodone/acetaminophen 10/325mg tab PO PRN ×4 (05:03→21:14)
[2018-11-01 06:10] VITALS: BP 114/49
--- NOTE | 2018-11-01 06:30 | NUR ---
I have received patient report from Tanya MILLS
--- NOTE | 2018-11-01 06:32 | NUR ---
Problems reprioritized. Patient report given, questions answered & plan of care reviewed with LINA Juarez.
[2018-11-01 07:01] LABS: BASOPHILS % (AUTO) 0.2 % (0-1); EOSINOPHILS # (AUTO) 0.2 X10'3 (0-0.9); EOSINOPHILS % (AUTO) 3.4 % (0-6); HEMATOCRIT 34.8 % (35.0-45.0); HEMOGLOBIN 11.6 g/dl (12.0-16.0); LYMPHOCYTES # (AUTO) 0.4 X10'3 (1.1-4.8); LYMPHOCYTES % (AUTO) 6.5 % (21-51); MEAN CORPUSCULAR HGB CONC 33.4 g/dL (33.0-36.5); MEAN CORPUSCULAR VOLUME 92.9 FL (78-98); MEAN PLATELET VOLUME 8.7 FL (7.4-10.4); MONOCYTES # (AUTO) 0.4 X10'3 (0-0.9); MONOCYTES % (AUTO) 6.4 % (2-12); NEUTROPHILS # (AUTO) 5.5 X10'3 (1.8-7.7); NEUTROPHILS % (AUTO) 83.5 % (42-75); PLATELET COUNT 239 X10'3 (140-440); RED BLOOD COUNT 3.75 X10'6 (4.20-5.60); RED CELL DISTRIBUTION WIDTH 14.2 % (11.5-14.5); WHITE BLOOD COUNT 6.6 X10'3 (4.5-11.0)
[2018-11-01] MEDS: pantoprazole 40mg Tablet.DR PO SCH ×2 (07:07→17:10)
[2018-11-01] MEDS: levoTHYROXINE 175mcg tablet PO SCH (07:07)
[2018-11-01 07:13] LABS: ALBUMIN 1.5 G/DL (3.4-5.0); ANION GAP 3 (8-16); BLOOD UREA NITROGEN 11 MG/DL (7-18); BUN/CREATININE RATIO 16.9 (6.6-38.0); CALCIUM 8.3 MG/DL (8.5-10.1); CHLORIDE 103 MMOL/L (99-107); CREATININE 0.65 MG/DL (0.40-0.90); GLUCOSE 87 MG/DL (70-104); MAGNESIUM 1.6 MG/DL (1.5-2.4); POTASSIUM 3.6 MMOL/L (3.5-5.1); SODIUM 141 MMOL/L (135-145); TOTAL CARBON DIOXIDE 34.8 MMOL/L (24-32); eGFR > 90 ML/MIN
[2018-11-01] MEDS: Dakins solution (1/4 strength) 473ml solution TP SCH (08:00)
[2018-11-01] MEDS: K and/or MAG REPLACEMENT MC SCH (08:00)
[2018-11-01] MEDS: spironolactone 25 MG tablet PO SCH (08:13)
[2018-11-01] MEDS: furosemide 40mg tablet PO SCH (08:13)
[2018-11-01] MEDS: gabapentin 300mg capsule PO SCH ×2 (08:14→19:47)
[2018-11-01] MEDS: lactobacillus rhamnosus 10,000 MMU CELLS/CAPSULE PO SCH ×2 (08:14→19:47)
[2018-11-01] MEDS: docusate sod 100mg capsule PO SCH ×2 (08:14→19:47)
[2018-11-01] MEDS: multivitamins, therapeutics tablet PO SCH (08:14)
[2018-11-01] MEDS: ascorbic acid 500mg tablet PO SCH (08:14)
[2018-11-01] MEDS: potassium chloride 10mEq ER tablet PO SCH (08:14)
[2018-11-01] MEDS: enoxaparin 40mg/0.4ml syringe SQ SCH (08:15)
[2018-11-01] MEDS: NABUMETONE 500MG PO SCH (08:15)
[2018-11-01] MEDS ORDERED: VANCOMYCIN LEVEL IV ONE (08:30)
[2018-11-01 10:00] VITALS: BP 146/89
[2018-11-01] MEDS: gentamicin inj 410 MG in normal saline 100ml IV soln 100 ML IV SCH (13:22)
[2018-11-01] MEDS: nystatin 15 GM powder TP SCH ×2 (13:28→19:48)
[2018-11-01] MEDS: morphine 2 MG/ML inj. syringe IV PRN (14:02)
[2018-11-01] MEDS: VANCOmycin 1250MG/NS 250ml Bag 250 ML IV SCH (14:20)
[2018-11-01 18:00] VITALS: BP 108/71
--- NOTE | 2018-11-01 18:10 | NUR ---
Patient in room ORTHO 4007. I have received report from LINA Juarez and had the opportunity to ask questions and assume patient care.
--- NOTE | 2018-11-01 18:13 | NUR ---
Patient report given to Tanya MILLS
[2018-11-01 22:00] VITALS: BP 107/46
[2018-11-01] MEDS ORDERED: MESSAGE TO NURSING IV ONE (23:00)
[2018-11-02] MEDS ORDERED: VANCOmycin 1250MG/NS 250ml Bag 250 ML IV ONE (02:00)
[2018-11-02] MEDS: HYDROcodone/acetaminophen 10/325mg tab PO PRN ×4 (02:11→20:02)
[2018-11-02 06:10] VITALS: BP 100/51
[2018-11-02 06:32] LABS: BASOPHILS % (AUTO) 0.3 % (0-1); EOSINOPHILS # (AUTO) 0.3 X10'3 (0-0.9); EOSINOPHILS % (AUTO) 4.2 % (0-6); HEMATOCRIT 36.5 % (35.0-45.0); HEMOGLOBIN 12.2 g/dl (12.0-16.0); LYMPHOCYTES # (AUTO) 0.7 X10'3 (1.1-4.8); LYMPHOCYTES % (AUTO) 11.2 % (21-51); MEAN CORPUSCULAR HEMOGLOBIN 30.6 PG (27.0-31.0); MEAN CORPUSCULAR HGB CONC 33.4 g/dL (33.0-36.5); MEAN CORPUSCULAR VOLUME 91.7 FL (78-98); MEAN PLATELET VOLUME 8.3 FL (7.4-10.4); MONOCYTES # (AUTO) 0.5 X10'3 (0-0.9); MONOCYTES % (AUTO) 8.4 % (2-12); NEUTROPHILS # (AUTO) 4.9 X10'3 (1.8-7.7); NEUTROPHILS % (AUTO) 75.9 % (42-75); PLATELET COUNT 277 X10'3 (140-440); RED BLOOD COUNT 3.99 X10'6 (4.20-5.60); RED CELL DISTRIBUTION WIDTH 14.4 % (11.5-14.5); WHITE BLOOD COUNT 6.5 X10'3 (4.5-11.0)
--- NOTE | 2018-11-02 06:50 | NUR ---
I have received patient report from Tanya MILLS
--- NOTE | 2018-11-02 06:52 | NUR ---
Problems reprioritized. Patient report given, questions answered & plan of care reviewed with LINA Juarez.
[2018-11-02] MEDS: levoTHYROXINE 175mcg tablet PO SCH (07:12)
[2018-11-02] MEDS: pantoprazole 40mg Tablet.DR PO SCH ×2 (07:12→17:15)
[2018-11-02 07:20] LABS: ALBUMIN 1.6 G/DL (3.4-5.0); ANION GAP 5 (8-16); BLOOD UREA NITROGEN 10 MG/DL (7-18); BUN/CREATININE RATIO 14.1 (6.6-38.0); CALCIUM 8.6 MG/DL (8.5-10.1); CHLORIDE 102 MMOL/L (99-107); CREATININE 0.71 MG/DL (0.40-0.90); GLUCOSE 98 MG/DL (70-104); MAGNESIUM 1.5 MG/DL (1.5-2.4); POTASSIUM 3.5 MMOL/L (3.5-5.1); SODIUM 142 MMOL/L (135-145); TOTAL CARBON DIOXIDE 34.8 MMOL/L (24-32); eGFR 82 ML/MIN
[2018-11-02] MEDS: K and/or MAG REPLACEMENT MC SCH (08:00)
[2018-11-02] MEDS: Dakins solution (1/4 strength) 473ml solution TP SCH (08:00)
[2018-11-02] MEDS: docusate sod 100mg capsule PO SCH ×2 (09:01→20:03)
[2018-11-02] MEDS: multivitamins, therapeutics tablet PO SCH (09:01)
[2018-11-02] MEDS: furosemide 40mg tablet PO SCH (09:01)
[2018-11-02] MEDS: gabapentin 300mg capsule PO SCH ×2 (09:01→20:03)
[2018-11-02] MEDS: potassium chloride 10mEq ER tablet PO SCH (09:02)
[2018-11-02] MEDS: spironolactone 25 MG tablet PO SCH (09:02)
[2018-11-02] MEDS: ascorbic acid 500mg tablet PO SCH (09:02)
[2018-11-02] MEDS: lactobacillus rhamnosus 10,000 MMU CELLS/CAPSULE PO SCH ×2 (09:02→20:03)
[2018-11-02] MEDS: enoxaparin 40mg/0.4ml syringe SQ SCH (09:02)
[2018-11-02] MEDS: nystatin 15 GM powder TP SCH ×3 (09:03→20:04)
[2018-11-02] MEDS: NABUMETONE 500MG PO SCH (09:03)
[2018-11-02 10:00] VITALS: BP 132/57
[2018-11-02] MEDS: gentamicin inj 410 MG in normal saline 100ml IV soln 100 ML IV SCH (13:14)
[2018-11-02 18:00] VITALS: BP 134/58
--- NOTE | 2018-11-02 18:00 | NUR ---
Patient in room ORTHO 4007. I have received report from LINA Juarez and had the opportunity to ask questions and assume patient care.
--- NOTE | 2018-11-02 18:30 | NUR ---
patient report given to Tanya MILLS
[2018-11-02 22:00] VITALS: BP 112/56
[2018-11-02] MEDS: mineral oil/petrolatum, white cream 113gm jar TP SCH (22:34)
[2018-11-03] MEDS: HYDROcodone/acetaminophen 10/325mg tab PO PRN ×3 (02:36→19:09)
[2018-11-03 06:00] VITALS: BP 118/38
--- NOTE | 2018-11-03 06:30 | NUR ---
Patient in room ORTHO 4007. I have received report from and had the opportunity to ask questions and assume patient care LINA Martínez.
--- NOTE | 2018-11-03 06:45 | NUR ---
Problems reprioritized. Patient report given, questions answered & plan of care reviewed with LINA Taylor.
[2018-11-03] MEDS: levoTHYROXINE 175mcg tablet PO SCH (07:33)
[2018-11-03] MEDS: pantoprazole 40mg Tablet.DR PO SCH ×2 (07:34→17:39)
[2018-11-03] MEDS: gabapentin 300mg capsule PO SCH ×2 (07:35→21:43)
[2018-11-03] MEDS: lactobacillus rhamnosus 10,000 MMU CELLS/CAPSULE PO SCH ×2 (07:38→21:43)
[2018-11-03] MEDS: potassium chloride 10mEq ER tablet PO SCH (07:41)
[2018-11-03] MEDS: enoxaparin 40mg/0.4ml syringe SQ SCH (07:42)
[2018-11-03] MEDS: nystatin 15 GM powder TP SCH ×3 (07:42→21:48)
[2018-11-03] MEDS: Dakins solution (1/4 strength) 473ml solution TP SCH (08:00)
[2018-11-03] MEDS: K and/or MAG REPLACEMENT MC SCH (08:00)
[2018-11-03] MEDS: NABUMETONE 500MG PO SCH (08:00)
[2018-11-03] MEDS: furosemide 40mg tablet PO SCH (08:09)
[2018-11-03] MEDS: ascorbic acid 500mg tablet PO SCH (08:09)
[2018-11-03] MEDS: docusate sod 100mg capsule PO SCH ×2 (08:09→22:17)
[2018-11-03] MEDS: multivitamins, therapeutics tablet PO SCH (08:09)
[2018-11-03] MEDS: spironolactone 25 MG tablet PO SCH (08:12)
[2018-11-03 10:00] VITALS: BP 105/40
[2018-11-03] MEDS: gentamicin inj 410 MG in normal saline 100ml IV soln 100 ML IV SCH (13:58)
[2018-11-03 18:00] VITALS: BP 109/54
[2018-11-03 22:00] VITALS: BP 126/45
[2018-11-03] MEDS: mineral oil/petrolatum, white cream 113gm jar TP SCH (22:07)
[2018-11-04] VITALS (8 sets, daily range): BP systolic 120–216; BP diastolic 50–104
--- NOTE | 2018-11-04 06:30 | NUR ---
Problems reprioritized. Patient report given, questions answered & plan of care reviewed with LINA SERRA.
[2018-11-04] MEDS: HYDROcodone/acetaminophen 10/325mg tab PO PRN ×2 (07:19→20:42)
[2018-11-04] MEDS: pantoprazole 40mg Tablet.DR PO SCH ×2 (07:20→17:26)
[2018-11-04] MEDS: ascorbic acid 500mg tablet PO SCH (07:34)
[2018-11-04] MEDS: nystatin 15 GM powder TP SCH ×3 (07:35→20:27)
[2018-11-04] MEDS: docusate sod 100mg capsule PO SCH ×2 (07:35→20:27)
[2018-11-04] MEDS: multivitamins, therapeutics tablet PO SCH (07:35)
[2018-11-04] MEDS: furosemide 40mg tablet PO SCH (07:35)
[2018-11-04] MEDS: gabapentin 300mg capsule PO SCH ×2 (07:35→20:26)
[2018-11-04] MEDS: lactobacillus rhamnosus 10,000 MMU CELLS/CAPSULE PO SCH ×2 (07:35→20:27)
[2018-11-04] MEDS: levoTHYROXINE 175mcg tablet PO SCH (07:35)
[2018-11-04] MEDS: potassium chloride 10mEq ER tablet PO SCH (07:35)
[2018-11-04] MEDS: mineral oil/petrolatum, white cream 113gm jar TP SCH ×2 (08:00→20:26)
[2018-11-04] MEDS: Dakins solution (1/4 strength) 473ml solution TP SCH (08:00)
[2018-11-04] MEDS: K and/or MAG REPLACEMENT MC SCH (08:00)
[2018-11-04] MEDS: NABUMETONE 500MG PO SCH (08:00)
[2018-11-04] MEDS: enoxaparin 40mg/0.4ml syringe SQ SCH (08:00)
[2018-11-04] MEDS: spironolactone 25 MG tablet PO SCH (08:30)
[2018-11-04] MEDS: gentamicin inj 410 MG in normal saline 100ml IV soln 100 ML IV SCH (13:00)
--- NOTE | 2018-11-04 14:41 | NUR ---
PT id BAND MISSING. WILL REPLACE. ADMINISTERING NORCO 10MG TAB AT THIS TIME
[2018-11-04] MEDS ORDERED: normal saline 1000ml 1,000 ML IV SCH (17:50)
--- NOTE | 2018-11-04 18:36 | NUR ---
Patient in room ORTHO 4007. I have received report from LINA SERRA and had the opportunity to ask questions and assume patient care.
--- NOTE | 2018-11-04 18:40 | NUR ---
Problems reprioritized. Patient report given, questions answered & plan of care reviewed with LINA Bond.
[2018-11-05 06:00] VITALS: BP 107/47
--- NOTE | 2018-11-05 06:00 | NUR ---
Patient in room ORTHO 4007. I have received report from and had the opportunity to ask questions and assume patient care LINA Bond.
--- NOTE | 2018-11-05 06:37 | NUR ---
Problems reprioritized. Patient report given, questions answered & plan of care reviewed with LINA SERRA.
[2018-11-05] MEDS: NABUMETONE 500MG PO SCH (08:00)
[2018-11-05] MEDS: K and/or MAG REPLACEMENT MC SCH (08:00)
[2018-11-05] MEDS: Dakins solution (1/4 strength) 473ml solution TP SCH (08:00)
[2018-11-05] MEDS: levoTHYROXINE 175mcg tablet PO SCH (08:00)
[2018-11-05] MEDS: furosemide 40mg tablet PO SCH (08:04)
[2018-11-05] MEDS: HYDROcodone/acetaminophen 10/325mg tab PO PRN ×3 (08:05→20:08)
[2018-11-05] MEDS: docusate sod 100mg capsule PO SCH ×2 (08:06→20:00)
[2018-11-05] MEDS: potassium chloride 10mEq ER tablet PO SCH (08:06)
[2018-11-05] MEDS: spironolactone 25 MG tablet PO SCH (08:06)
[2018-11-05] MEDS: ascorbic acid 500mg tablet PO SCH (08:07)
[2018-11-05] MEDS: lactobacillus rhamnosus 10,000 MMU CELLS/CAPSULE PO SCH ×2 (08:07→20:06)
[2018-11-05] MEDS: pantoprazole 40mg Tablet.DR PO SCH ×2 (08:07→17:00)
[2018-11-05] MEDS: gabapentin 300mg capsule PO SCH ×2 (08:07→20:05)
[2018-11-05] MEDS: mineral oil/petrolatum, white cream 113gm jar TP SCH ×2 (08:08→20:08)
[2018-11-05] MEDS: nystatin 15 GM powder TP SCH ×3 (08:10→20:08)
[2018-11-05] MEDS: enoxaparin 40mg/0.4ml syringe SQ SCH (08:12)
[2018-11-05] MEDS: multivitamins, therapeutics tablet PO SCH (08:23)
--- NOTE | 2018-11-05 10:00 | NUR ---
Admit 77 y/o male from OR to O/N. Dr Garza/surgeon: R hip arthroplasty spinal/no block. EBL 350, SAW, immobilizwe, FC, IV 18 R wrist LR running. gurney transfer, A/O x4, family member in room. 184.3 kg, 5'9" per report. Hx: HTN, a-fib, kidney stones. tele #20. SCD applied, VSS, O2 titrated down. Sats 98-100.
[2018-11-05] MEDS: gentamicin inj 410 MG in normal saline 100ml IV soln 100 ML IV SCH (13:00)
--- NOTE | 2018-11-05 13:34 | NUR ---
Reassessment: Patient is eating fair, about 75% PO intake, met with patient at bedside and obtained food preferences, patient reports good appetite however was not receiving food she preferred. Provided patient with written alternative heart healthy menu. Encouraged protein intake. Rec: 1. continue heart healthy diet; double meats TIDWM 2. ensure high protein TIDWM; pend MD verification 3. MVI for wound healing 4. wt per rx Addendum: 11/05/18 at [address] Amended: Links added.
[2018-11-05 18:00] VITALS: BP 108/48
[2018-11-05 22:00] VITALS: BP 116/48
[2018-11-06] MEDS: HYDROcodone/acetaminophen 10/325mg tab PO PRN ×2 (04:54→15:27)
[2018-11-06 06:00] VITALS: BP 115/58
--- NOTE | 2018-11-06 06:45 | NUR ---
Problems reprioritized. Patient report given, questions answered & plan of care reviewed with lesvia luz.
--- NOTE | 2018-11-06 06:46 | NUR ---
Patient in room ORTHO 4007. I have received report from Ronda MILLS and had the opportunity to ask questions and assume patient care.
[2018-11-06 07:06] LABS: ALBUMIN 1.9 G/DL (3.4-5.0); ANION GAP 2 (8-16); BLOOD UREA NITROGEN 8 MG/DL (7-18); CALCIUM 8.5 MG/DL (8.5-10.1); CHLORIDE 97 MMOL/L (99-107); GLUCOSE 114 MG/DL (70-104); POTASSIUM 3.2 MMOL/L (3.5-5.1); SODIUM 138 MMOL/L (135-145); TOTAL CARBON DIOXIDE 38.9 MMOL/L (24-32); eGFR 72 ML/MIN
[2018-11-06] MEDS: NABUMETONE 500MG PO SCH (08:00)
[2018-11-06] MEDS: nystatin 15 GM powder TP SCH ×2 (08:00→13:16)
[2018-11-06] MEDS: K and/or MAG REPLACEMENT MC SCH (08:00)
[2018-11-06] MEDS: lactobacillus rhamnosus 10,000 MMU CELLS/CAPSULE PO SCH (08:04)
[2018-11-06] MEDS: potassium chloride 10mEq ER tablet PO SCH (08:04)
[2018-11-06] MEDS: furosemide 40mg tablet PO SCH (08:04)
[2018-11-06] MEDS: docusate sod 100mg capsule PO SCH (08:05)
[2018-11-06] MEDS: spironolactone 25 MG tablet PO SCH (08:05)
[2018-11-06] MEDS: gabapentin 300mg capsule PO SCH (08:05)
[2018-11-06] MEDS: levoTHYROXINE 175mcg tablet PO SCH (08:05)
[2018-11-06] MEDS: pantoprazole 40mg Tablet.DR PO SCH (08:05)
[2018-11-06] MEDS: ascorbic acid 500mg tablet PO SCH (08:05)
[2018-11-06] MEDS: multivitamins, therapeutics tablet PO SCH (08:05)
[2018-11-06] MEDS: enoxaparin 40mg/0.4ml syringe SQ SCH (08:07)
[2018-11-06] MEDS: Dakins solution (1/4 strength) 473ml solution TP SCH (09:27)
[2018-11-06] MEDS: mineral oil/petrolatum, white cream 113gm jar TP SCH (09:28)
--- NOTE | 2018-11-06 13:18 | NUR ---
[facility] called Adia PATEL about VAC dressing change, apparently pt is scheduled to go back to surgery in the next day or so and VAC dressing change is not appropriate at this time, will continue to follow.
--- NOTE | 2018-11-06 15:38 | NUR ---
Report called to Sirena MILLS at [facility]. HOME MEDS COLLECTED FROM PHARMACY. TO BE GIVEN TO PT ON TRANSFER TO [facility].
--- NOTE | 2018-11-06 16:22 | NUR ---
CHRISTIN CARGO HERE TO TRANSFER PT TO [facility]. PT TRANSFERRED TO [facility], ALL BELONGINGS AND HOME MEDS SENT WITH PT. PT LEFT IN STABLE CONDITION WITH PICC LINE AND WOUND VAC INTACT,.
== END 2018-11-06 16:10 | DRG 871 ==
LOC: ER 20:03 → ORTHO 4S 23:59 → CMPBEDREQ 10-29 00:55
PROVIDERS: ADMIT Hospitalist; ATTEND Family Medicine
DX: A41.9 Sepsis, unspecified organism (principal); I50.33 Acute on chronic diastolic (congestive) heart failure; Z68.43 Body mass index [BMI] 50.0-59.9, adult; L03.115 Cellulitis of right lower limb; L03.116 Cellulitis of left lower limb; I89.0 Lymphedema, not elsewhere classified; L98.499 Non-pressure chronic ulcer of skin of other sites with unspecified severity; E66.01 Morbid (severe) obesity due to excess calories; R09.02 Hypoxemia; B95.2 Enterococcus as the cause of diseases classified elsewhere; N19 Unspecified kidney failure; R23.0 Cyanosis; R55 Syncope and collapse; E03.9 Hypothyroidism, unspecified; L89.620 Pressure ulcer of left heel, unstageable; G89.29 Other chronic pain; Z60.2 Problems related to living alone; I11.0 Hypertensive heart disease with heart failure; J43.9 Emphysema, unspecified; Z86.14 Personal history of Methicillin resistant Staphylococcus aureus infection; Z88.1 Allergy status to other antibiotic agents; Z22.322 Carrier or suspected carrier of Methicillin resistant Staphylococcus aureus; Z90.49 Acquired absence of other specified parts of digestive tract; Z88.8 Allergy status to other drugs, medicaments and biological substances; Z79.899 Other long term (current) drug therapy; Z79.890 Hormone replacement therapy; E87.6 Hypokalemia
CPT/HCPCS: 36415; 36600; 71045; 76937; 80048; 80053; 80061; 80202; 81001; 82803; 82948; 83735; 84145; 84443; 84484; 85018; 85025; 85651; 87081; 93005; 93306; 96365; 96366; 96375; 97110; 97116; 97161; 97530; 99285; G0378; J1580; J1650; J2270; J3370; J7040

== ENCOUNTER 2021-12-16 18:20 | Emergency (ER) | payer MEDICARE, MEDICAID ==
[~2021-12-16] VITALS: Ht 152.4 cm; Wt 179.1 kg
[~2021-12-16 18:20] MED LIST changes: +ASCO500C18 PO; -BUDE10.2 INH; -CLIN-5 PO; +COLL30OI TOP; +FURO40TA4 PO; -FUROSEMIDE 40 MG TABLET PO; -HYDR-3972 PO; -HYDR-4384 PO; -HYDROCODONE-ACETAMIN 7.5-325; +LACT1CAP65 PO; -LEVOTHYROXINE 175 MCG; -LIDOCAINE HCL 2%; +LOSA25TA96 PO; +NABU-139 PO; +OMEP20CA16 PO; -OMEP40CA13 PO; -OMEPRAZOLE 20 MG; +PNV1TABL75 PO; +POTA-205 PO; -POTASSIUM CITRATE 10 MEQ; -POTASSIUM CITRATE 10 MEQ PO; -SPIRONOLACTONE 50 MG; -SYMBICORT 160-4.5 MCG INHALER; -TRAZODONE HCL 50 MG
[2021-12-16 18:39] VITALS: BP 129/50
[2021-12-16] MEDS ORDERED: DOXYCYCLINE 100MG CAPSULE PO STA (22:34)
[2021-12-16] MEDS ORDERED: DOXY100C76 PO (22:34)
--- NOTE | 2021-12-16 22:43 | NUR ---
PO MED GIVEN
== END 2021-12-16 23:52 | disposition home or self-care (01) ==
LOC: ER 18:21
DX: L02.31 Cutaneous abscess of buttock (principal); I10 Essential (primary) hypertension; J44.9 Chronic obstructive pulmonary disease, unspecified; E03.9 Hypothyroidism, unspecified; Z88.1 Allergy status to other antibiotic agents; Z88.8 Allergy status to other drugs, medicaments and biological substances; Z98.890 Other specified postprocedural states
CPT/HCPCS: 99284; A6258; A6449

== ENCOUNTER 2022-10-26 17:02 | Emergency (ER) | payer MEDICARE, MEDICAID ==
[~2022-10-26] VITALS: Ht 157.5 cm; Wt 120.3 kg
[2022-10-26 17:43] VITALS: TEMP 96
[2022-10-26] MEDS ORDERED: diazepam inj 5 MG/ML inj. IM ONE (19:40)
[2022-10-26] MEDS ORDERED: CYCL-1 PO (19:43)
[2022-10-26] MEDS ORDERED: NAPR-56 PO (19:43)
[2022-10-26] MEDS ORDERED: ketorolac trometh. 30mg/ml inj. IM ONE (19:50)
[2022-10-26 20:38] VITALS: BP 130/49; PULSE 65; RESP 16; O2SAT 93
== END 2022-10-26 20:39 | disposition home or self-care (01) ==
LOC: ER 17:02
DX: S39.012A Strain of muscle, fascia and tendon of lower back, initial encounter (principal); I10 Essential (primary) hypertension; E03.9 Hypothyroidism, unspecified; J43.9 Emphysema, unspecified; F17.200 Nicotine dependence, unspecified, uncomplicated; Z98.890 Other specified postprocedural states; Z90.49 Acquired absence of other specified parts of digestive tract; Z88.8 Allergy status to other drugs, medicaments and biological substances; Z88.0 Allergy status to penicillin; Z88.1 Allergy status to other antibiotic agents; Z79.899 Other long term (current) drug therapy; W19.XXXA Unspecified fall, initial encounter; Y93.89 Activity, other specified; Y92.89 Other specified places as the place of occurrence of the external cause; Y99.8 Other external cause status
CPT/HCPCS: 96372; 99284; J1885; J3360